=== PATIENT | female | born 1975 | race African-American/Black ===

== ENCOUNTER 2019-08-25 09:00 | Emergency (ER) | payer BC, SELFPAY ==
--- OUTSIDE RECORDS SUMMARY | 2019-08-25 09:03 | XMS REPORT | Summary of Care ---
:1975 Author Organization [facility] Address [address] [place] [address] Care Team Providers Name Role Phone Pcp, Patient Does Not Have A Primary Care Provider Reason for Referral Radiology Services (Routine) Status Reason Specialty Diagnoses / Referred By Referred To Procedures Contact Contact Closed Diagnostic Diagnoses Menorrhagia with regular cycle Vanaphan, Claudia, Radiology Procedures US PELVIS COMPLETE NON-OB PA-C [address] [place] [phone] Radiology Services (Routine) Status Reason Specialty Diagnoses / Referred By Referred To Procedures Contact Contact Closed Diagnostic Diagnoses Menorrhagia with regular cycle Vanaphan, Claudia, Radiology Procedures US PELVIS COMPLETE NON-OB PA-C [address] [address] Reason for Visit Radiology Services (Routine) Status Reason Specialty Diagnoses / Referred By Referred To Procedures Contact Contact Closed Diagnostic Diagnoses Menorrhagia with regular cycle Vanaphan, Claudia, Radiology Procedures US PELVIS COMPLETE NON-OB PA-C [address] [address] Encounter Details Date Type Department Care Team Description 04/13/2019 Hospital Encounter Critical access hospital Claudia Taylor, Manny Mary Ultrasound PA-C [address] [place] [phone] [address] [phone] [phone] Allergies No Known Allergiesdocumented as of this encounter (statuses as of 04/14/2019) Medications Medication Sig Dispensed Refills Start Date End Date Status MULTIVITAMIN ORAL Take by mouth. 0 Active LACTOBACILLUS Take by mouth. 0 Active ACIDOPHILUS (PROBIOTIC ORAL) omeprazole (PRILOSEC) 0 11/07/2015 Active 20 mg capsule ONETOUCH ULTRA TEST 1 11/24/2015 Active strip ONETOUCH ULTRAMINI Kit 0 11/24/2015 Active ONETOUCH DELICA LANCETS 1 11/25/2015 Active 30 gauge Misc metFORMIN (GLUCOPHAGE) 0 12/29/2015 Active 500 mg tablet traZODONE (DESYREL) 100 11 01/22/2016 Active mg tablet norgestimate-ethinyl Take 1 tablet by 1 Package 12 03/27/2017 Active estradiol 0.25-35 mouth mg-mcg per SEE-INSTRUCTIONS tabletIndications: . Premenstrual dysphoric disorder venlafaxine XR 150 mg Take 1 capsule 30 capsule 3 10/28/2017 Active 24 hr capsule by mouth daily with breakfast. TRAZODONE 100 mg tablet TAKE 1 TABLET BY 90 tablet 0 04/01/2018 Active MOUTH AT BEDTIME VENLAFAXINE XR 150 mg TAKE 1 CAPSULE 30 capsule 3 04/08/2018 Active 24 hr capsule BY MOUTH DAILY WITH BREAKFAST. metroNIDAZOLE 500 mg Take 1 tablet by 14 tablet 0 03/30/2019 Active tabletIndications: BV mouth every 12 (bacterial vaginosis) (twelve) hours. 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 Dysplasia of cervix, low grade (RENE 1) 08/23/2015 Premenstrual dysphoric disorder 08/19/2015 documented as of this encounter (statuses as of 04/14/2019) Immunizations Name Administration Dates Next Due Tdap 02/08/2016 documented as of this encounter Social History Tobacco Use Types Packs/Day Years Used Date Never Smoker Cigarettes, Pipe Smokeless Tobacco: Never Used Alcohol Use Drinks/Week oz/Week Comments No 0 Standard drinks or equivalent 0.0 Sex Assigned at Date Recorded Not on file Job Start Date Occupation Industry Not on file Not on file Not on file Travel History Travel Start Travel End No recent travel history available. documented as of this encounter Last Filed Vital Signs Not on filedocumented in this encounter Plan of Treatment Date Type Specialty Care Team Description 03/28/2020 Office Visit Obstetrics & Gynecology Claudia Taylor PA-C [address] [place] [phone] Health Maintenance Due Date Last Done Comments INFLUENZA VACCINE 05/17/2019 PAP SMEAR 03/26/2020 03/26/2017 MAMMOGRAM 03/30/2020 03/30/2019, 09/13/2017, 09/06/2016, Additional history exists DTaP,Tdap,and Td Vaccines 02/07/2026 02/08/2016 (2 - Td) PNEUMOCOCCAL 0-64 YEARS Aged Out No longer eligible COMBINED SERIES based on patient's age to complete this topic documented as of this encounter Procedures Procedure Name Priority Date/Time Associated Diagnosis Comments US PELVIS COMPLETE Routine 04/13/2019 4:30 PM Menorrhagia with Results for this NON-OB CDT regular cycle procedure are in the results section. documented in this encounter Results US PELVIS COMPLETE NON-OB (04/13/2019 4:30 PM CDT) Specimen Narrative Performed At HISTORY:Heavy menses with cramps. PACS/VR/DOSE TECHNIQUE: Both transabdominal and transvaginal pelvic ultrasound studies were completed by the technologist. FINDINGS: Uterus is of normal size and shape, measures approximately 8.2 x 4.2 x 4.7 cm in size with homogeneous echo texture of the myometrium except in the anterior wall of the upper body where there were slightly heterogeneous echotexture without a discrete fibroid.Endometrial echo complex is thin mm. No free fluid in the cul-de-sac. Right ovary is 3.4 x 2.5 x 1.9 cm ( 9.09 ml) and left ovary is not visualized with transabdominal or transvaginal studies. 2 cysts are present in the right ovary, each measuring 14 x 12 mm and 16 x 15 mm in size. CONCLUSIONS: 1. Normal size uterus with no focal myometrial lesions seen. 2. No endometrial hyperplasia. 3. 2 cysts in the right ovary described above. Left ovary is not visualized in this study. Note: Above report is self-edited and computer generated errors may be overlooked. Therefore, if you notice an error, I request you to bring it to my attention [facility]. SRI 2010 guidelines for simple ovarian cyst: Premenopausal: 3 cm or smaller -almost certainly benign with malignancy. Several less than 1%. 3 to 5 cm-no follow-up. 5 to 7 cm-annual follow-up. 7 cm or larger-MRI or surgery. Postmenopausal: 1 cm or smaller- ignore. 1cm - 7 cm-annual follow-up. 7 cm or larger-MR imaging or surgical evaluation. If hemorrhagic cyst, ignore if it is less than 3 cm, mention in the report with no follow-up if 3 to 5 cmfollow-up in 6-12 weeks if it is larger than 5 cm. Procedure Note Ut, Radiant Results Inft User - 04/13/2019 4:33 PM CDT HISTORY: Heavy menses with cramps. TECHNIQUE: Both transabdominal and transvaginal pelvic ultrasound studies were completed by the technologist. FINDINGS: Uterus is of normal size and shape, measures approximately 8.2 x 4.2 x 4.7 cm in size with homogeneous echo texture of the myometrium except in the anterior wall of the upper body where there were slightly heterogeneous echotexture without a discrete fibroid. Endometrial echo complex is thin mm. No free fluid in the cul-de-sac. Right ovary is 3.4 x 2.5 x 1.9 cm ( 9.09 ml) and left ovary is not visualized with transabdominal or transvaginal studies. 2 cysts are present in the right ovary, each measuring 14 x 12 mm and 16 x 15 mm in size. CONCLUSIONS: 1. Normal size uterus with no focal myometrial lesions seen. 2. No endometrial hyperplasia. 3. 2 cysts in the right ovary described above. Left ovary is not visualized in this study. Note: Above report is self-edited and computer generated errors may be overlooked. Therefore, if you notice an error, I request you to bring it to my attention [facility]. SRI 2010 guidelines for simple ovarian cyst: Premenopausal: 3 cm or smaller -almost certainly benign with malignancy. Several less than 1%. 3 to 5 cm-no follow-up. 5 to 7 cm-annual follow-up. 7 cm or larger-MRI or surgery. Postmenopausal: 1 cm or smaller- ignore. 1cm - 7 cm-annual follow-up. 7 cm or larger-MR imaging or surgical evaluation. If hemorrhagic cyst, ignore if it is less than 3 cm, mention in the report with no follow-up if 3 to 5 cm follow-up in 6-12 weeks if it is larger than 5 cm. Performing Organization Address City/State/Zipcode Phone Number PACS/VR/DOSE documented in this encounter Visit Diagnoses Diagnosis Menorrhagia with regular cycle Excessive or frequent menstruation documented in this encounter Insurance Payer Benefit Plan / Subscriber ID Effective Dates Phone Address Type Group [facility] - [facility] [id number] 2017-Present PPO/POS [facility] [employer] EMPLOYEE EMPLOYEE PLAN (Home) [place] [address] documented as of this encounter Advance Directives Name Relationship Healthcare Agent Relationship Communication River Selam Spouse Primary healthcare agent
--- OUTSIDE RECORDS SUMMARY | 2019-08-25 09:03 | XMS REPORT | Summary of Care ---
:1975 Author Organization [facility] - Health Address [address] [place] [address] Care Team Providers Name Role Phone Pcp, Patient Does Not Have A Primary Care Provider Encounter Details Date Type Department Care Team Description 04/13/2019 Orders Only [facility] Doctor Unassigned, No [address] [facility] [place] [address] [address] [place] [address] Allergies No Known Allergiesdocumented as of this encounter (statuses as of 04/13/2019) Medications Medication Sig Dispensed Refills Start Date [...] as of this encounter (statuses as of 04/13/2019) Active Problems Problem Noted Date Low grade squamous intraepithelial lesion (LGSIL) on Papanicolaou smear of cervix Decreased libido 08/23/2015 Depression 08/23/2015 Hypoactive sexual desire disorder 08/23/2015 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 [phone] Health Maintenance Due Date Last Done Comments INFLUENZA VACCINE 05/17/2019 PAP SMEAR 03/26/2020 03/26/2017 MAMMOGRAM 03/30/2020 03/30/2019, 09/13/2017, 09/06/2016, Additional history exists DTaP,Tdap,and Td Vaccines 02/07/2026 02/08/2016 (2 - Td) PNEUMOCOCCAL 0-64 YEARS Aged Out No longer eligible COMBINED SERIES based on patient's age to complete this topic documented as of this encounter Procedures Procedure Name Priority Date/Time Associated Diagnosis Comments ASSIGNMENT OF BENEFITS Routine 04/13/2019 3:34 PM CDT documented in this encounter Results Not on filedocumented in this encounter Insurance Payer Benefit Plan / Subscriber ID Effective Dates Phone Address Type Group [facility] [id number] 2017-Present PPO/POS [facility] EMPLOYEE EMPLOYEE PLAN documented as of this encounter Advance Directives Name Relationship Healthcare Agent Relationship Communication River Doss Spouse Primary healthcare agent
--- OUTSIDE RECORDS SUMMARY | 2019-08-25 09:03 | XMS REPORT | Summary of Care ---
:1975 Author Organization [facility] - Health Address [address] [place] [address] Care Team Providers Name Role Phone Pcp, Patient Does Not Have A Primary Care Provider Encounter Details Date Type Department Care Team Description 04/24/2019 Orders Only [facility] Doctor Unassigned, No 301 [facility] [place] [address] [address] [place] [address] Allergies No Known Allergiesdocumented as of this encounter (statuses as of 04/24/2019) Medications Medication Sig Dispensed Refills Start Date [...] as of this encounter (statuses as of 04/24/2019) Active Problems Problem Noted Date Low grade squamous intraepithelial lesion (LGSIL) on Papanicolaou smear of cervix Decreased libido 08/23/2015 Depression 08/23/2015 Hypoactive sexual desire disorder 08/23/2015 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 Dysplasia of cervix, low grade (RENE 1) 08/23/2015 Premenstrual dysphoric disorder 08/19/2015 documented as of this encounter (statuses as of 04/24/2019) Immunizations Name Administration Dates Next Due Tdap [...] Treatment Date Type Specialty Care Team Description 04/24/2019 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 Visit Clinical Medical Claudia Taylor PA-C [address] [phone] Laboratory 1, [facility] Lab 03/28/2020 Office Visit Obstetrics & Gynecology Claudia Taylor PA-C [address] [phone] Health Maintenance Due Date Last Done Comments [...] Associated Diagnosis Comments ASSIGNMENT OF BENEFITS Routine 04/24/2019 7:53 AM CDT documented in this encounter Results Not on filedocumented in this encounter Insurance Payer Benefit Plan / Subscriber ID Effective Dates Phone Address Type Group [facility] [id number] 2017-Present PPO/POS [facility] EMPLOYEE EMPLOYEE PLAN documented as of this encounter Advance Directives Name Relationship Healthcare Agent Relationship Communication River Doss Spouse Primary healthcare agent
--- OUTSIDE RECORDS SUMMARY | 2019-08-25 09:04 | XMS REPORT ---
:1975 Author Organization [facility] Address [address] [place] [address] Dr. Smith [address] [place] [address] Care Team Providers Name Role Phone Unavailable Unavailable Unavailable Problems This patient has no known problems. Allergies, Adverse Reactions, Alerts This patient has no known allergies or adverse reactions. Medications This patient has no known medications.
--- OUTSIDE RECORDS SUMMARY | 2019-08-25 09:04 | XMS REPORT | Summary of Care ---
:1975 Author Organization [facility] Address [address] [place] [address] Care Team Providers Name Role Phone Pcp, Patient Does Not Have A Primary Care Provider Reason for Referral MRI/CAT Scan (Routine) Status Reason Specialty Diagnoses / Referred By Referred To Procedures Contact Contact New Request Diagnostic Diagnoses Pain pelvic Vanaphan, Radiology Procedures CT PELVIS W WO CONTRAST GLADYS Taylor [address] [place] [address] Reason for Visit Reason Comments Results Encounter Details Date Type Department Care Team Description 05/12/2019 Telephone [facility] Women's Claudia Taylor PA-C Results Healthcare- [address], [address] [place] [address] [place] [phone] Allergies No Known Allergiesdocumented as of this encounter (statuses as of 05/13/2019) Medications Medication Sig Dispensed Refills Start Date [...] as of this encounter (statuses as of 05/13/2019) Active Problems Problem Noted Date Low grade squamous intraepithelial lesion (LGSIL) on Papanicolaou smear of cervix Decreased libido 08/23/2015 Depression 08/23/2015 Hypoactive sexual desire disorder 08/23/2015 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 Dysplasia of cervix, low grade (RENE 1) 08/23/2015 Premenstrual dysphoric disorder 08/19/2015 documented as of this encounter (statuses as of 05/13/2019) Immunizations Name Administration Dates Next Due Tdap [...] Visit Obstetrics & Gynecology Claudia Taylor PA-C [address] [place] [phone] Name Type Priority Associated Diagnoses Order Schedule CT PELVIS W WO CONTRAST IMAGING Routine Pain pelvic Expected: 05/12/2019, Expires: 05/12/2020 CREATININE LAB Routine Pain pelvic Expected: 05/12/2019, Expires: 05/11/2020 Health Maintenance Due Date Last Done Comments INFLUENZA VACCINE (#1) 2019 PAP SMEAR 03/26/2020 03/26/2017 MAMMOGRAM 03/30/2020 03/30/2019, 09/13/2017, 09/06/2016, Additional history exists DTaP,Tdap,and Td Vaccines 02/07/2026 02/08/2016 (2 - Td) PNEUMOCOCCAL 0-64 YEARS Aged Out No longer eligible COMBINED SERIES based on patient's age to complete this topic documented as of this encounter Results Not on filedocumented in this encounter Visit Diagnoses Diagnosis Pain pelvic - Primary Unspecified symptom associated with female genital organs documented in this encounter Insurance Payer Benefit Plan / Subscriber ID Effective Dates Phone Address Type Group [facility] [id number] 2017-Present PPO/POS [facility] EMPLOYEE EMPLOYEE PLAN documented as of this encounter Advance Directives Name Relationship Healthcare Agent Relationship Communication River Doss Spouse Primary healthcare agent
--- OUTSIDE RECORDS SUMMARY | 2019-08-25 09:04 | XMS REPORT | Summary of Care ---
:1975 Author Organization [facility] Address [address] [place] [address] Care Team Providers Name Role Phone Pcp, Patient Does Not Have A Primary Care Provider Reason for Visit Reason Comments LAB WORK Auth/Cert Status Reason Specialty Diagnoses / Referred By Referred To Procedures Contact Contact Clinical Medical Diagnoses Irregular menstrual cycle Irregular menstrual cycle [facility] Lab Laboratory Procedures TSH,PROGESTRONE,FOLICLE,ESTRADOL [address] [place] [address] [place] [address] Encounter Details Date Type Department Care Team Description 04/24/2019 [facility] Taylor PA-C [address] [place] [address] [address] [place] [phone] Well woman exam with routine gynecological exam; Phlebotomy 1, [facility] Lab Screening for STD (sexually transmitted disease); [facility] Irregular menstrual cycle; [address] [place] [address] Menorrhagia with regular cycle; [place] [phone] Allergies No Known Allergiesdocumented as [...] Obstetrics & Gynecology Claudia Taylor PA-C [address] [phone] Name Type Priority Associated Diagnoses Date/Time ADC, CLC OR LCC ONLY - LAB Routine Well woman exam with 04/24/2019 8:18 AM HIV TYPE 1 AND 2 routine gynecological exam CDT ANTIBODY SCREEN WITH P24 Screening for STD (sexually transmitted disease) ADC OR STEPHANIE ONLY - LAB Routine Well woman exam with 04/24/2019 8:18 AM RPR routine gynecological exam CDT Screening for STD (sexually transmitted disease) FOLLICLE STIMULATING LAB Routine Irregular menstrual cycle 04/24/2019 8:18 AM HORMONE Menorrhagia with regular CDT cycle Hot flashes PROGESTERONE, LEVEL LAB Routine Irregular menstrual cycle 04/24/2019 8:18 AM Menorrhagia with regular CDT cycle Hot flashes ESTRADIOL, LEVEL LAB Routine Irregular menstrual cycle 04/24/2019 8:18 AM Menorrhagia with regular CDT cycle Hot flashes THYROID STIMULATING LAB Routine Irregular menstrual cycle 04/24/2019 8:18 AM HORMONE Menorrhagia with regular CDT cycle Hot flashes Health Maintenance Due Date Last Done Comments INFLUENZA VACCINE 05/17/2019 PAP SMEAR 03/26/2020 03/26/2017 MAMMOGRAM 03/30/2020 03/30/2019, 09/13/2017, 09/06/2016, Additional history exists DTaP,Tdap,and Td Vaccines 02/07/2026 02/08/2016 (2 - Td) PNEUMOCOCCAL 0-64 YEARS Aged Out No longer eligible COMBINED SERIES based on patient's age to complete this topic documented as of this encounter Results Not on filedocumented in this encounter Visit Diagnoses Diagnosis Well woman exam with routine gynecological exam Routine gynecological examination Screening for STD (sexually transmitted disease) Screening examination for venereal disease Irregular menstrual cycle Menorrhagia with regular cycle Excessive or frequent menstruation Hot flashes Symptomatic menopausal or female climacteric states documented in this encounter Insurance Payer Benefit Plan / Subscriber ID Effective Dates Phone Address Type Group [facility] - [facility] [id number] 2017-Present PPO/POS [facility] EMPLOYEE EMPLOYEE PLAN documented as of this encounter Advance Directives Name Relationship Healthcare Agent Relationship Communication River Doss Spouse Primary healthcare agent
--- OUTSIDE RECORDS SUMMARY | 2019-08-25 09:04 | XMS REPORT | Summary of Care ---
:1975 Author Organization [facility] Address [address] [place] [address] Care Team Providers Name Role Phone Pcp, Patient Does Not Have A Primary Care Provider Reason for Visit Reason Comments Assessment Encounter Details Date Type Department Care Team Description 05/11/2019 Telephone [facility] Women's Claudia Taylor PA-C Assessment Healthcare- [address], [address] [place] [address] [place] [phone] Allergies No Known Allergiesdocumented as of this encounter (statuses as of 05/11/2019) Medications Medication Sig Dispensed Refills Start Date [...] as of this encounter (statuses as of 05/11/2019) Active Problems Problem Noted Date Low grade squamous intraepithelial lesion (LGSIL) on Papanicolaou smear of cervix Decreased libido 08/23/2015 Depression 08/23/2015 Hypoactive sexual desire disorder 08/23/2015 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 Dysplasia of cervix, low grade (RENE 1) 08/23/2015 Premenstrual dysphoric disorder 08/19/2015 documented as of this encounter (statuses as of 05/11/2019) Immunizations Name Administration Dates Next Due Tdap [...] Visit Obstetrics & Gynecology Claudia Taylor PA-C [address] [place] [phone] Health Maintenance Due Date Last Done [...] ID Effective Dates Phone Address Type Group [facility] [id number] 2017-Present PPO/POS [facility] EMPL[employer]EE EMPLOYEE PLAN documented as of this encounter Advance Directives Name Relationship Healthcare Agent Relationship Communication River Doss Spouse Primary healthcare agent
--- OUTSIDE RECORDS SUMMARY | 2019-08-25 09:04 | XMS REPORT | Clinical Summary ---
:1975 Author Organization [facility] - [facility] Address [address] [place] [id number] Care Team Providers Name Role Phone Pcp, Patient Does Not Have A Primary Care Provider Allergies No Known Allergies Medications Medication Sig Dispensed Refills Start Date [...] per SEE-INSTRUCTIONS tabletIndications: . Premenstrual dysphoric disorder metroNIDAZOLE 500 mg Take 1 tablet by 14 tablet 0 03/30/2019 Active tabletIndications: BV mouth every 12 (bacterial vaginosis) (twelve) hours. venlafaxine XR 75 mg 24 Take 1 capsule 30 capsule 1 05/21/2019 Active hr capsuleIndications: by mouth daily Recurrent major with breakfast. depressive disorder, in partial remission traZODone 100 mg Take 1 tablet by 60 tablet 0 05/21/2019 Active tabletIndications: mouth at Recurrent major bedtime. 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 Dysplasia of cervix, low grade (RENE 1) 08/23/2015 Premenstrual dysphoric disorder 08/19/2015 Encounters Date Type Specialty Care Team Description 05/12/2019 Telephone Obstetrics & Brandon, Results Gynecology GLADYS Taylor 05/11/2019 Telephone Obstetrics & Brandon, Assessment Gynecology GLADYS Taylor 04/24/2019 Medical Records Specialist Visit Clinical Medical Andrésaphmanjit, Well woman exam with routine gynecological exam; Laboratory GLADYS Taylor Screening for STD (sexually transmitted disease); 1, [facility] Lab Irregular menstrual cycle; Menorrhagia with regular cycle; Hot flashes 04/24/2019 Orders Only Doctor Unassigned, [place] 04/13/2019 Hospital Encounter Radiology Claudia Taylor PA-C 04/13/2019 Orders Only Doctor Unassigned, [place] 03/30/2019 Hospital Encounter Radiology Claudia Taylor PA-C 03/30/2019 Case Management Obstetrics & Brandon, New Medication Gynecology GLADYS Taylor 03/27/2019 Office Visit Obstetrics & Brandon, Well woman exam with routine gynecological exam (Primary Dx); Gynecology GLADYS Taylor Screening for STD (sexually transmitted disease); Vaginal discharge; Irregular menstrual cycle; Menorrhagia with regular cycle; Hot flashes; Screening breast examination 03/27/2019 Orders Only Doctor Unassigned, [place] from Last 3 Months Immunizations Name Administration Dates Next Due Tdap 02/08/2016 Family History Medical History Relation Name Comments High cholesterol Father Cancer Maternal Grandmother Leukemia Asthma Mother Arthritis NoFHx defects NoFHx Breast Cancer NoFHx Colon Cancer NoFHx Depression NoFHx Diabetes NoFHx Genetic NoFHx Heart NoFHx Hypertension NoFHx Mental retardation NoFHx Neurological NoFHx Osteoporosis NoFHx Other - see comments NoFHx Ovarian Cancer NoFHx Psychiatry NoFHx Uterine Cancer NoFHx Relation Name Status Comments Father Maternal Grandmother Mother Social History Tobacco Use Types Packs/Day Years Used Date Never Smoker Cigarettes, Pipe Smokeless Tobacco: Never Used Alcohol Use Drinks/Week oz/Week Comments No 0 Standard drinks or equivalent 0.0 Sex Assigned at Date Recorded Not on file Job Start Date Occupation Industry Not on file Not on file Not on file Travel History Travel Start Travel End No recent travel history available. Last Filed Vital Signs Vital Sign Reading Time Taken Comments Blood Pressure 118/80 05/21/2019 9:35 AM CDT Pulse 60 05/21/2019 9:35 AM CDT Temperature 36.8 C (98.2 F) 03/27/2019 9:30 AM CDT Respiratory Rate 18 05/21/2019 9:35 AM CDT Oxygen Saturation 100% 08/30/2015 4:54 PM [employer]IVE Inhaled Oxygen Concentration - - Weight 78.8 kg (173 lb 12.8 oz) 05/21/2019 9:35 AM CDT Height 172.7 cm (5' 8") 05/21/2019 9:35 AM CDT Body Mass Index 26.43 05/21/2019 9:35 AM CDT Plan of Treatment Date Type Specialty Care Team Description 03/28/2020 Office Visit Obstetrics & Gynecology Claudia Taylor PA-C [facility] [address] [id number] Health Maintenance Due Date Last Done Comments INFLUENZA VACCINE (#1) 2019 PAP SMEAR 03/26/2020 03/26/2017 MAMMOGRAM 03/30/2020 03/30/2019, 09/13/2017, 09/06/2016, Additional history exists DTaP,Tdap,and Td Vaccines 02/07/2026 02/08/2016 (2 - Td) PNEUMOCOCCAL 0-64 YEARS Aged Out No longer eligible COMBINED SERIES based on patient's age to complete this topic Procedures Procedure Name Priority Date/Time Associated Diagnosis Comments THYROID STIMULATING Routine 04/24/2019 8:18 Irregular menstrual Results for this HORMONE AM CDT cycle procedure are in Menorrhagia with the results regular cycle section. Hot flashes ESTRADIOL, LEVEL Routine 04/24/2019 8:18 Irregular menstrual Results for this AM CDT cycle procedure are in Menorrhagia with the results regular cycle section. Hot flashes PROGESTERONE, LEVEL Routine 04/24/2019 8:18 Irregular menstrual Results for this AM CDT cycle procedure are in Menorrhagia with the results regular cycle section. Hot flashes FOLLICLE STIMULATING Routine 04/24/2019 8:18 Irregular menstrual Results for this HORMONE AM CDT cycle procedure are in Menorrhagia with the results regular cycle section. Hot flashes ADC OR STEPHANIE ONLY - Routine 04/24/2019 8:18 Well woman exam with Results for this RPR AM CDT routine procedure are in gynecological exam the results Screening for STD section. (sexually transmitted disease) ADC, CLC OR LCC ONLY - Routine 04/24/2019 8:18 Well woman exam with Results for this HIV TYPE 1 AND 2 AM CDT routine procedure are in ANTIBODY SCREEN WITH gynecological exam the results P24 Screening for STD section. (sexually transmitted disease) HEPATITIS B SURFACE Routine 04/24/2019 8:18 Well woman exam with Results for this ANTIGEN AM CDT routine procedure are in gynecological exam the results Screening for STD section. (sexually transmitted disease) CONSENT/REFUSAL FOR Routine 04/24/2019 7:54 DIAGNOSIS AND TREATMENT AM CDT ASSIGNMENT OF BENEFITS Routine 04/24/2019 7:53 AM CDT US PELVIS COMPLETE Routine 04/13/2019 4:30 Menorrhagia with Results for this NON-OB PM CDT regular cycle procedure are in the results section. NOTICE OF PRIVACY Routine 04/13/2019 3:35 PRACTICES PM CDT VACCINATIONS - Routine 04/13/2019 3:34 CONSENTS, ELIGIBILITY, PM CDT HISTORY CONSENT/REFUSAL FOR Routine 04/13/2019 3:34 DIAGNOSIS AND TREATMENT PM CDT ASSIGNMENT OF BENEFITS Routine 04/13/2019 3:34 PM CDT BI SCREENING MAMMOGRAM Routine 03/30/2019 8:35 Screening breast Results for this BILATERAL AM CDT examination procedure are in the results section. CONSENT/REFUSAL FOR Routine 03/30/2019 8:04 DIAGNOSIS AND TREATMENT AM CDT ASSIGNMENT OF BENEFITS Routine 03/30/2019 8:04 AM CDT GC & CHLAMYDIA Routine 03/27/2019 9:49 Well woman exam with Results for this AMPLIFIED ASSAY AM CDT routine procedure are in gynecological exam the results Screening for STD section. (sexually transmitted disease) GALV ONLY - VAGINAL Routine 03/27/2019 9:48 Well woman exam with Results for this PATHOGENS BY DNA PROBE AM CDT routine procedure are in gynecological exam the results Vaginal discharge section. [facility] PATIENT FINANCIAL Routine 03/27/2019 8:46 POLICY AM CDT NO SHOW OR MISSED Routine 03/27/2019 8:46 APPOINTMENT POLICY AM CDT ACKNOWLEDGEMENT NOTICE OF PRIVACY Routine 03/27/2019 8:46 PRACTICES AM CDT CONSENT/REFUSAL FOR Routine 03/27/2019 8:46 DIAGNOSIS AND TREATMENT AM CDT ASSIGNMENT OF BENEFITS Routine 03/27/2019 8:45 AM CDT from Last 3 Months Results ADC, CLC OR LCC ONLY - HIV TYPE 1 AND 2 ANTIBODY SCREEN WITH P24 (04/24/2019 8: 18 AM CDT) HIV 1/2 AG/AB NON-REACTIVE Nonreactive [facility] Specimen Blood Performing Organization Address City/[facility]/Zipcode Phone Number [facility] CLIA: [id number], [address] [place] [address] ADC OR STEPHANIE ONLY - RPR (04/24/2019 8:18 AM CDT) RPR (Qualitative) NON-REACTIVE Nonreactive [facility] Specimen Blood Performing Organization Address City/[facility] Phone Number [facility] CLIA: [id number], [address] [place] [address] HEPATITIS B SURFACE ANTIGEN (04/24/2019 8:18 AM CDT) HBsAg HEPATITIS B Negative [facility] SURFACE ANTIGEN SERVICES NEGATIVE HBsAg 0.05 [facility] Semi-Quantitative SERVICES Specimen Blood Performing Organization Address City/[facility]/Zipcode Phone Number [facility] CLIA: [id number], [address] [place] [address] [facility] ESTRADIOL, LEVEL (04/24/2019 8:18 AM CDT) E2 29 pg/mL [facility] SERVICES Specimen Blood Narrative Performed At Estradiol Reference Ranges: [facility] Female: Follicular 27-122 pg/mL Eus--710 pg/mL Luteal 49-291 pg/mL Post Menopausal 20-40 pg/mL Male 20-47 pg/mL Performing Organization Address City/State/Zipcode Phone Number [facility] CLIA: [id number], [address] [place] [address] [facility] PROGESTERONE, LEVEL (04/24/2019 8:18 AM CDT) PROGEST 0.54 ng/mL [facility] SERVICES Specimen Blood Narrative Performed At Normal ranges for Progesterone [facility] Proliferative: 0.3 1.5 ng/mL Luteal:5.1 18.5 ng/mL Performing Organization Address City/State/Zipcode Phone Number [facility] CLIA: [id number], [address] [place], [place] [address] [phone] [facility] FOLLICLE STIMULATING HORMONE (04/24/2019 8:18 AM CDT) FSH 37.46 mIU/mL [facility] SERVICES Specimen Blood Narrative Performed At FSH Reference Ranges [facility] Follicular Phase: 3.8-8.8 mIU/mL Mid-cycle Peak: 4.5-22.85 mIU/mL Luteal Phase: 1.7-5.1 mIU/mL Post-menopause female:16.7-113.6 mIU/mL Adult male: 1.2-19 mIU/mL Performing Organization Address City/State/Zipcode Phone Number [facility] CLIA: [id number], [address] [place] [address] [facility] THYROID STIMULATING HORMONE (04/24/2019 8:18 AM CDT) TSH 1.97Comment: Biotin 0.45 - 4.70 [facility] has been reported mIU/L HOSPITAL LABORATORY to cause a negative bias, interpret results relative to patient's use of biotin. Specimen Blood Performing Organization Address [facility]/Zipcode Phone Number [facility] CLIA: [id number], [address] [place] [address] CONSENT/REFUSAL FOR DIAGNOSIS AND TREATMENT (04/24/2019 7:54 AM CDT)Only the most recent of4 resultswithin the time period is included. Specimen Performing Organization Address City/[facility]/Zipcode Phone Number [facility] ASSIGNMENT OF BENEFITS (04/24/2019 7:53 AM CDT)Only the most recent of4 resultswithin the time period is included. Specimen Performing Organization Address City/[facility]/Zipcode Phone Number HIM US PELVIS COMPLETE NON-OB (04/13/2019 4:30 PM [...] is larger than 5 cm. Procedure Note [facility], Radiant Results Inft User - 04/13/2019 4:33 [...] larger than 5 cm. Performing Organization Address [facility] Phone Number PACS/VR/DOSE NOTICE OF PRIVACY PRACTICES (04/13/2019 3:35 PM CDT)Only the most recent of2 resultswithin the time period is included. Specimen Performing Organization Address [facility] Phone Number [facility] VACCINATIONS - CONSENTS, ELIGIBILITY, HISTORY (04/13/2019 3:34 PM CDT) Specimen Performing Organization Address [facility] Phone Number [facility] BI SCREENING MAMMOGRAM BILATERAL (03/30/2019 8:35 AM CDT) Specimen Narrative Performed At Examination: PACS BI SCREENING MAMMOGRAM BILATERAL History: Patient is 44 year old and is seen for:Routine mammogram screening. No relevant family history has been documented for this patient. Hormone history includes other. No relevant surgical history has been documented for this patient. No relevant medical history has been documented for this patient. Computer-aided detection (CAD) utilized. Comparisons: 09/13/2017 DIGITAL MAMMOGRAM, SCREENING (No Change), 09/06/2016 DIGITAL MAMMOGRAM, SCREENING (No Change), and 08/29/2015 DIGITAL MAMMOGRAM, SCREENING Findings: The breasts are almost entirely fatty. Left There are round and rim calcifications seen in the left breast. Compared to the previous study, there are no significant changes. Right There are 2 similar intramammary lymph nodes seen in the upper outer quadrant of the right breast in the posterior depth. Compared to the previous study, there are no significant changes. Bilateral There are post-surgical findings from a previous breast reduction seen in both breasts. There has been no interval development of a suspicious mass, microcalcification, or architectural distortion. Impression: No signs of malignancy. Recommendation: Annual mammographic follow-up - Bilateral Annual mammographic follow-up - Right Annual mammographic follow-up - Left BI-RADS Category: Both 2 - Benign Performing Organization Address City/State/[facility] Cent[facility]ode Phone Number PACS GC & CHLAMYDIA AMPLIFIED ASSAY (03/27/2019 9:49 AM CDT) C. trachomatis Nucleic NEGATIVE Negative [facility] Acid SERVICES N. gonorrhoeae Nucleic NEGATIVE Negative [facility] Acid SERVICES Specimen Urine - URINE, CLEAN CATCH Performing Organization Address [facility] Centercode Phone Number [facility] CLIA: [id number], [address] [place] [address] [phone] [facility] ONLY - VAGINAL PATHOGENS BY DNA PROBE (03/27/2019 9:48 AM CDT) Trichomonas Negative Negative [facility] vaginalis SERVICES Gardnerella Positive Negative [facility] vaginalis (A)Comment: The SERVICES presence of Gardnerella vaginalis although suggestive, is not diagnostic of Bacterial Vaginosis. Rochelle species Negative Negative [facility] SERVICES Specimen Fluid - VAGINA Performing Organization Address [facility] Cent[facility]ode Phone Number [facility] CLIA: [id number], [address] [place] [address] [phone] [facility] PATIENT FINANCIAL POLICY (03/27/2019 8:46 AM CDT) Specimen Performing Organization Address City/State/Zipcode Phone Number HIM NO SHOW OR MISSED APPOINTMENT POLICY ACKNOWLEDGEMENT (03/27/2019 8:46 AM CDT) Specimen Performing Organization Address City/[facility] Cent[facility] Phone Number HIM from Last 3 Months Insurance Payer Benefit Plan / Subscriber ID Effective Dates Phone Address Type Group [facility] [id number] 2017-Present PPO/POS [facility] EM[employer]OYEE EMPLOYEE PLAN Advance Directives Name Relationship Healthcare Agent Relationship Communication River Doss Spouse Primary healthcare agent
--- OUTSIDE RECORDS SUMMARY | 2019-08-25 09:05 | XMS REPORT | Clinical Summary ---
:1975 Author Organization [facility] - [facility] Address [address] [place] [id number] Care Team Providers Name Role Phone Pcp, [...] & Brandon, Assessment Gynecology GLADYS Taylor 04/24/2019 Steel Plate Printer Visit Clinical Medical Andrésaphmanjit, Well woman exam with routine gynecological exam; Laboratory GLADYS Taylor Screening for STD (sexually transmitted disease); 1, Adc Lab Irregular menstrual cycle; Menorrhagia with regular cycle; Hot flashes 04/24/2019 Orders Only Doctor Unassigned, [place] 04/13/2019 Hospital Encounter Radiology Claudia Taylor PA-C 04/13/2019 Orders Only Doctor Unassigned, [place] 03/30/2019 Hospital Encounter Radiology Claudia Taylor PA-C 03/30/2019 Case Management Obstetrics & Brandon, New Medication Gynecology GLADYS Taylor 03/27/2019 Office Visit Obstetrics & Brandon, Well woman exam with routine gynecological exam (Primary Dx); Gynecology GLADYS Taylor Screening for STD (sexually transmitted disease); Vaginal discharge; Irregular menstrual cycle; Menorrhagia with regular cycle; Hot flashes; Screening breast examination 03/27/2019 Orders Only Doctor Unassigned, [place] from Last 3 Months Immunizations Name Administration [...] CDT Oxygen Saturation 100% 08/30/2015 4:54 PM RN RESIDENTIAL Inhaled Oxygen Concentration - - Weight 78.8 kg (173 lb 12.8 oz) 05/21/2019 9:35 AM CDT Height 172.7 cm (5' 8") 05/21/2019 9:35 AM CDT Body Mass Index 26.43 05/21/2019 9:35 AM CDT Plan of Treatment Date Type Specialty Care Team Description 03/28/2020 Office Visit Obstetrics & Gynecology Claudia Taylor PA-C [facility] [address] [id number] Health Maintenance Due Date Last [...] gynecological exam the results Vaginal discharge section. [facility] PATIENT FINANCIAL Routine 03/27/2019 8:46 POLICY AM [...] AM CDT) HIV 1/2 AG/AB NON-REACTIVE Nonreactive [facility] LABORATORY Specimen Blood Performing Organization Address City/[facility]/Zipcode Phone Number [facility] CLIA: [id number], [address] [place] [address] ADC OR STEPHANIE ONLY - RPR (04/24/2019 8:18 AM CDT) RPR (Qualitative) NON-REACTIVE Nonreactive [facility] LABORATORY Specimen Blood Performing Organization Address City/[facility] Phone Number [facility] CLIA: [id number], [address] [place] [address] HEPATITIS B SURFACE ANTIGEN (04/24/2019 8:18 AM CDT) HBsAg HEPATITIS B Negative [facility] LABORATORY SURFACE ANTIGEN SERVICES NEGATIVE HBsAg 0.05 [facility] LABORATORY Semi-Quantitative SERVICES Specimen Blood Performing Organization Address City/[facility]/Zipcode Phone Number [facility] LABORATORY SERVICES CLIA: [id number], [address] [place] [address] [phone] [facility] ESTRADIOL, LEVEL (04/24/2019 8:18 AM CDT) E2 29 pg/mL [facility] LABORATORY SERVICES Specimen Blood Narrative Performed At Estradiol Reference Ranges: [facility] LABORATORY SERVICES Female: Follicular 27-122 pg/mL [id number] pg/mL Luteal 49-291 pg/mL Post Menopausal 20-40 pg/mL Male 20-47 pg/mL Performing Organization Address City/State/Zipcode Phone Number [facility] LABORATORY SERVICES CLIA: [id number], [address] [place] [address] [phone] [facility] PROGESTERONE, LEVEL (04/24/2019 8:18 AM CDT) PROGEST 0.54 ng/mL [facility] LABORATORY SERVICES Specimen Blood Narrative Performed At Normal ranges for Progesterone [facility] LABORATORY SERVICES Proliferative: 0.3 1.5 ng/mL Luteal:5.1 18.5 ng/mL Performing Organization Address City/State/Zipcode Phone Number [facility] LABORATORY SERVICES CLIA: [id number], [address] [place], [place] [address] [phone] [facility] FOLLICLE STIMULATING HORMONE (04/24/2019 8:18 AM CDT) FSH 37.46 mIU/mL [facility] LABORATORY SERVICES Specimen Blood Narrative Performed At FSH Reference Ranges [facility] LABORATORY SERVICES Follicular Phase: 3.8-8.8 mIU/mL Mid-cycle Peak: 4.5-22.85 mIU/mL Luteal Phase: 1.7-5.1 mIU/mL Post-menopause female:16.7-113.6 mIU/mL Adult male: 1.2-19 mIU/mL Performing Organization Address City/State/Zipcode Phone Number [facility] LABORATORY SERVICES CLIA: [id number], [address] [place] [address] [facility] THYROID STIMULATING HORMONE (04/24/2019 8:18 AM CDT) TSH 1.97Comment: Biotin 0.45 - 4.70 [facility] has been reported mIU/L HOSPITAL LABORATORY to cause a negative bias, interpret results relative to patient's use of biotin. Specimen Blood Performing Organization Address [facility]/Zipcode Phone Number [facility] CLIA: [id number], [address] [place] [address] CONSENT/REFUSAL FOR DIAGNOSIS AND TREATMENT (04/24/2019 7:54 AM CDT)Only the most recent of4 resultswithin the time period is included. Specimen Performing Organization Address City/[facility]/Zipcode Phone Number [facility] ASSIGNMENT OF BENEFITS (04/24/2019 7:53 AM CDT)Only the most recent of4 resultswithin the time period is included. Specimen Performing Organization Address City/[facility]/Zipcode Phone Number HIM US PELVIS COMPLETE NON-OB [...] is larger than 5 cm. Procedure Note [facility], Radiant Results Inft User - 04/13/2019 [...] larger than 5 cm. Performing Organization Address [facility] Phone Number PACS/VR/DOSE NOTICE OF PRIVACY PRACTICES (04/13/2019 3:35 PM CDT)Only the most recent of2 resultswithin the time period is included. Specimen Performing Organization Address [facility] Phone Number [facility] VACCINATIONS - CONSENTS, ELIGIBILITY, HISTORY (04/13/2019 3:34 PM CDT) Specimen Performing Organization Address [facility] Phone Number [facility] BI SCREENING MAMMOGRAM BILATERAL (03/30/2019 8:35 AM [...] Both 2 - Benign Performing Organization Address City/State/[facility] Phone Number PACS GC & CHLAMYDIA AMPLIFIED ASSAY (03/27/2019 9:49 AM CDT) C. trachomatis Nucleic NEGATIVE Negative [facility] LABORATORY Acid SERVICES N. gonorrhoeae Nucleic NEGATIVE Negative [facility] LABORATORY Acid SERVICES Specimen Urine - URINE, CLEAN CATCH Performing Organization Address [facility] Phone Number [facility] LABORATORY SERVICES CLIA: [id number], [address] [place] [address] [phone] [facility] ONLY - VAGINAL PATHOGENS BY DNA PROBE (03/27/2019 9:48 AM CDT) Trichomonas Negative Negative [facility] LABORATORY vaginalis SERVICES Gardnerella Positive Negative [facility] LABORATORY vaginalis (A)Comment: The SERVICES presence of Gardnerella vaginalis although suggestive, is not diagnostic of Bacterial Vaginosis. Rochelle species Negative Negative [facility] LABORATORY SERVICES Specimen Fluid - VAGINA Performing Organization Address [facility] Phone Number [facility] LABORATORY SERVICES CLIA: [id number], [address] [place] [phone] [facility] PATIENT FINANCIAL POLICY (03/27/2019 8:46 AM CDT) Specimen Performing Organization Address City/State/Zipcode Phone Number HIM NO SHOW OR MISSED APPOINTMENT POLICY ACKNOWLEDGEMENT (03/27/2019 8:46 AM CDT) Specimen Performing Organization Address City/[facility] Phone Number [facility] from Last 3 Months Insurance Payer Benefit Plan / Subscriber ID Effective Dates Phone Address Type Group [facility] [id number] 2017-Present PPO/POS [facility] EMPLOYEE EMPLOYEE PLAN Advance Directives Name Relationship Healthcare Agent Relationship Communication River Doss Spouse Primary healthcare agent
[2019-08-25 10:49] LABS: Absolute Lymphocytes (CBC) 0.8 K/uL (0.7-4.9); Basophils % 0.4 % (0-1.3); Hematocrit 38.7 % (36.0-45.0); Lymphocytes % 14.4 % (15.3-44.8); MPV 8.9 fL (7.6-11.3); RBC Red Blood Cell Count 4.61 M/uL (3.86-4.86)
[2019-08-25 10:53] LABS: Urine Blood TRACE (NEG); Urine Glucose NEGATIVE (NEG); Urine Protein NEGATIVE (NEG); Urine Specific Gravity >1.030 (1.005-1.030); Urine pH 5.5 (5.0-7.0)
--- NOTE | 2019-08-25 11:18 | RAD REPORT ---
EXAM DESCRIPTION: CT - Abdomen Pelvis W Contrast - 08/25/2019 10:58 am CLINICAL HISTORY: Abdominal pain/diarrhea COMPARISON: none. TECHNIQUE: Computed axial tomography of the abdomen pelvis was obtained. 100 cc Isovue-300 was admin istered intravenously. Oral contrast was not requested which limits evaluation of bowel. All CT scans are performed using dose optimization technique as appropriate and may include automated exposure control or mA/KV adjustment according to patient size. FINDINGS: Cholecystectomy. Splenic granulomata. Calcified lung granulomas. The liver, pancreas, adrenal and kidneys appear unremarkable. There is no evidence of diverticulitis. A normal appendix The wall of the terminal ileum appears mildly thickened IMPRESSION: Mildly thickening of the wall of the terminal ileum may indicate inflammation
[2019-08-25 11:29] LABS: ALT/SGPT 21 U/L (12-78); AST/SGOT 14 U/L (15-37); Albumin 3.5 g/dL (3.4-5.0); Alkaline Phosphatase 109 U/L (45-117); BUN Blood Urea Nitrogen 13 mg/dL (7-18); Bicarbonate 24 mmol/L (21-32); Bilirubin Direct < 0.1 mg/dL (0-0.2); Bilirubin Total 0.2 mg/dL (0.2-1.0); Glucose Level 93 mg/dL (74-106); Lipase 484 U/L (73-393); Potassium 4.4 mmol/L (3.5-5.1); Sodium Level 139 mmol/L (136-145)
--- NOTE | 2019-08-25 12:46 | ER ---
Nurse's Notes [facility] Name: Genna Doss Age: 44 yrs Sex: Female : 1975 Arrival Date: 08/25/2019 Time: 09:02 Bed 16 Private MD: Diagnosis: Dehydration;Ileitis Presentation: 08/25 09:10 Presenting complaint: Productive cough and SOB x 2 weeks, N/D x 2 days. Denies fever. hb Transition of care: patient was not received from another setting of care. Onset of symptoms was August 25, 2019. Risk Assessment: Do you want to hurt yourself or someone else? Patient reports no desire to harm self or others. Initial Sepsis Screen: Does the patient meet any 2 criteria? No. Patient's initial sepsis screen is negative. Does the patient have a suspected source of infection? No. Patient's initial sepsis screen is negative. Care prior to arrival: None. 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 - Social history:: Smoking status: Patient/guardian denies using tobacco. - Ebola Screening: : No symptoms or risks identified at this time. - Family history:: not pertinent. - Hospitalizations: : No recent hospitalization is reported. Screenin:15 Abuse screen: Denies threats or abuse. Denies injuries from another. Nutritional hb screening: No deficits noted. Tuberculosis screening: No symptoms or risk factors identified. Fall Risk None identified. Assessment: 09:07 General: Appears in no apparent distress. comfortable, Behavior is calm, cooperative. rb1 Pain: Complains of pain in abdomen Pain currently is 7 out of 10 on a pain scale. Pain began Saturday. Neuro: Level of Consciousness is awake, alert, obeys commands, Oriented to person, place, time, situation. Cardiovascular: Capillary refill < 3 seconds is brisk in bilateral fingers. Respiratory: Airway is patent Respiratory effort is even, unlabored, Respiratory pattern is regular, symmetrical. GI: Abdomen is non-distended, Bowel sounds present X 4 quads. Abd is soft X 4 quads Reports diarrhea, nausea. : No signs and/or symptoms were reported regarding the genitourinary system. Derm: Skin is dry, Skin is normal, Skin temperature is warm. 10:00 Reassessment: Patient appears in no apparent distress at this time. Patient and/or rb1 family updated on plan of care and expected duration. Pain level reassessed. Patient is alert, oriented x 3, equal unlabored respirations, skin warm/dry/pink. 11:00 Reassessment: Patient appears in no apparent distress at this time. No changes from rb1 previously documented assessment. 12:00 Reassessment: Patient appears in no apparent distress at this time. Patient and/or rb1 family updated on plan of care and expected duration. Pain level reassessed. Patient is alert, oriented x 3, equal unlabored respirations, skin warm/dry/pink. 13:00 Reassessment: Patient appears in no apparent distress at this time. No changes from rb1 previously documented assessment. Pt. is watching TV. Vital Signs: 09:13 BP 134 / 86; Pulse 65; Resp 16; Temp 98.2(O); Pulse Ox 100% on R/A; Weight 83.91 kg; hb Height 5 ft. 8 in. (172.72 cm); Pain 3/10; 10:19 BP 132 / 76; Pulse 58; Resp 15; Temp 97.8(O); Pulse Ox 98% on R/A; mh5 12:08 BP 133 / 81; Pulse 61; Resp 15; Temp 98.5(O); Pulse Ox 100% on R/A; mh5 12:59 BP 130 / 94; Pulse 56; Resp 17; Pulse Ox 100% on R/A; rb1 09:13 Body Mass Index 28.13 (83.91 kg, 172.72 cm) ED Course: 09:02 Patient arrived in ED. as 09:03 Vijay Gusman MD is Attending Physician. rn 09:11 Triage completed. hb 09:13 Arm band placed on. hb 09:43 Ada Ruth, RN is Primary Nurse. rb1 10:02 Radiology exam delayed due to lab results not completed at this time. (BUN/Creatinine). 10:17 Patient has correct armband on for positive identification. Placed in gown. Bed in low mh5 position. Call light in reach. Side rails up X 1. Pillow given. Pulse ox on. NIBP on. 10:17 Initial lab(s) drawn, by me, sent to lab. Missed attempt(s): 22 gauge in left mh5 antecubital area. 10:18 Urine --Ancillary (enter results) Sent. mh5 10:18 Urine Dipstick--Ancillary (enter results) Sent. 5 10:18 Stool Culture Sent. 5 10:18 CDIFF Sent. 5 10:34 Inserted saline lock: 22 gauge in right antecubital area, using aseptic technique. tw2 Blood collected. 10:50 CT completed. Patient tolerated procedure well. Patient moved to CT via wheelchair. Patient moved back from CT. 10:59 CT Abd/Pelvis - IV Contrast Only In Process Unspecified. EDMS 13:27 No provider procedures requiring assistance completed. IV discontinued, intact, rb1 bleeding controlled, No redness/swelling at site. Pressure dressing applied. Administered Medications: No medications were administered Outcome: 12:46 Discharge ordered by . rn 13:27 Patient left the ED. rb1 13:27 Discharged to home ambulatory. rb1 13:27 Condition: stable 13:27 Discharge instructions given to patient, Instructed on discharge instructions, follow up and referral plans. medication usage, Demonstrated understanding of instructions, follow-up care, medications, Prescriptions given X 2. Signatures: Dispatcher [employer] EDMS Shae Bonilla Roman, MD MD rn Warren, Shannon Ada Ruth RN RN rb1 Char Singleton RN RN hb Wise, Tara, RN RN 2 Mely Bonilla [facility] Corrections: (The following items were deleted from the chart) 10:58 10:19 BP 132 / 76; Pulse 58bpm; Resp 15bpm; Pulse Ox 98% RA; 5 5
--- NOTE | 2019-08-25 12:47 | EDPHYS ---
Physician Documentation [facility] Name: Genna Doss Age: 44 yrs Sex: Female : 1975 Arrival Date: 08/25/2019 Time: 09:02 Bed 16 Private MD: ED Physician Vijay Gusman HPI: 08/25 09:27 This 44 yrs old Black Female presents to ER via Ambulatory with complaints of Abdominal rn Cramping, Diarrhea. 09:28 The patient presents with abdominal pain in the epigastric area. rn 09:29 Onset: The symptoms/episode began/occurred 2 day(s) ago. The symptoms do not radiate. rn Associated signs and symptoms: Pertinent positives: diarrhea, nausea, Pertinent negatives: blood in stools, fever, vaginal discharge, vomiting blood. The symptoms are described as crampy. Modifying factors: The symptoms are alleviated by nothing, the symptoms are aggravated by breathing deeply. Severity of pain: At its worst the pain was moderate in the emergency department the pain is unchanged. The patient has not experienced similar symptoms in the past. 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 Feels generalized weakness. . 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 - Social history:: Smoking status: Patient/guardian denies using tobacco. - Ebola Screening: : No symptoms or risks identified at this time. - Family history:: not pertinent. - Hospitalizations: : No recent hospitalization is reported. ROS: 09:29 Constitutional: Negative for fever, chills, and weight loss, Eyes: Negative for injury, rn pain, redness, and discharge, Neck: Negative for injury, pain, and swelling, Cardiovascular: Negative for chest pain, palpitations, and edema, Respiratory: Negative for shortness of breath, cough, wheezing, and pleuritic chest pain, Abdomen/GI: + abd cramping, + nausea/diarrhea MS/Extremity: Negative for injury and deformity, Skin: Negative for injury, rash, and discoloration, Neuro: Negative for headache, numbness, tingling, and seizure. Exam: 09:29 Constitutional: This is a well developed, well nourished patient who is awake, alert, rn and in no acute distress. Ambulatory without assistance. Head/Face: Normocephalic, atraumatic. ENT: dry MM Cardiovascular: Regular rate and rhythm. No pulse deficits. Respiratory: No increased work of breathing, no retractions or nasal flaring. Abdomen/GI: soft, mild epigastric tenderness, no rebound MS/ Extremity: Pulses equal, no cyanosis. Neurovascular intact. Full, normal range of motion. Equal circumference. Neuro: Awake and alert, GCS 15, oriented to person, place, time, and situation. Cranial nerves II-XII grossly intact. Motor strength 5/5 in all extremities. Sensory grossly intact. Cerebellar exam normal. Normal gait. Vital Signs: 09:13 BP 134 / 86; Pulse 65; Resp 16; Temp 98.2(O); Pulse Ox 100% on R/A; Weight 83.91 kg; hb Height 5 ft. 8 in. (172.72 cm); Pain 3/10; 10:19 BP 132 / 76; Pulse 58; Resp 15; Temp 97.8(O); Pulse Ox 98% on R/A; mh5 12:08 BP 133 / 81; Pulse 61; Resp 15; Temp 98.5(O); Pulse Ox 100% on R/A; mh5 12:59 BP 130 / 94; Pulse 56; Resp 17; Pulse Ox 100% on R/A; rb1 09:13 Body Mass Index 28.13 (83.91 kg, 172.72 cm) hb MDM: 09:03 Patient medically screened. rn 12:44 Differential diagnosis: gastritis, non-specific abd pain, pancreatitis, diverticulitis, rn colitis, enteritis. Data reviewed: vital signs, nurses notes, lab test result(s), radiologic studies, CT scan, and as a result, I will discharge patient. Counseling: I had a detailed discussion with the patient and/or guardian regarding: the historical points, exam findings, and any diagnostic results supporting the discharge/admit diagnosis, lab results, radiology results, the need for outpatient follow up, to return to the emergency department if symptoms worsen or persist or if there are any questions or concerns that arise at home. Response to treatment: the patient's symptoms have mildly improved after treatment, and as a result, I will discharge patient. Special discussion: I discussed with the patient/guardian in detail that at this point there is no indication for admission to the hospital. It is understood, however, that if the symptoms persist or worsen the patient needs to return immediately for re-evaluation. ED course: Pt improved, mild ileitis on CT, cdiff and stool culture sent, will dc home with bactrim and pcp f/u, return precautions given and understood. Will notify if stool culture/cdiff show anything positive.. 08/25 09:15 Order name: Basic Metabolic Panel; Complete Time: 12:30 rn 08/25 09:15 Order name: CBC with Diff; Complete Time: 11:27 rn 08/25 09:15 Order name: Creatinine for Radiology; Complete Time: 10:27 rn 08/25 09:15 Order name: Hepatic Function; Complete Time: 12:30 rn 08/25 09:15 Order name: Lipase; Complete Time: 12:30 rn 08/25 09:15 Order name: CDIFF rn 08/25 09:15 Order name: IV Saline Lock; Complete Time: 12:59 rn 08/25 09:15 Order name: Labs collected and sent; Complete Time: 12:59 rn 08/25 09:15 Order name: Stool Culture 08/25 09:15 Order name: CT Abd/Pelvis - IV Contrast Only; Complete Time: 12:30 rn 08/25 09:57 Order name: Labs - recollect needed; Complete Time: 12:44 bd 08/25 10:17 Order name: Urine Dipstick--Ancillary (enter results); Complete Time: 11:27 bd 08/25 10:17 Order name: Urine --Ancillary (enter results); Complete Time: 11:27 bd Administered Medications: No medications were administered Disposition: 08/25/19 12:46 Discharged to Home. Impression: Dehydration, Ileitis. - Condition is Stable. - Discharge Instructions: Dehydration, Adult, Diarrhea, Adult. - Prescriptions for Zofran ODT 4 mg Oral tablet,disintegrating - place 1 tablet by TRANSLINGUAL route every 8 hours As needed; 20 tablet. Bactrim DS 800- 160 mg Oral Tablet - take 1 tablet by ORAL route every 12 hours for 10 days; 20 tablet. - Medication Reconciliation Form, Thank You Letter, Antibiotic Education, Prescription Opioid Use, Work release form form. - Follow up: Private Physician; When: As needed; Reason: Recheck today's complaints, Re-evaluation by your physician. - Problem is new. - Symptoms have improved. Signatures: Dispatcher [employer] EDMS Dayna Lepe Roman, MD MD rn Barber, Rebecca, RN RN rb1 Char Singleton RN RN Corrections: (The following items were deleted from the chart) 13:27 12:46 08/25/2019 12:46 Discharged to Home. Impression: Dehydration; Ileitis. Condition rb1 is Stable. Forms are Medication Reconciliation Form, Thank You Letter, Antibiotic Education, Prescription Opioid Use. Follow up: Private Physician; When: As needed; Reason: Recheck today's complaints, Re-evaluation by your physician. Problem is new. Symptoms have improved. rn
[2019-08-25 15:18] LABS: C.diff Antigen/Toxin Ag neg : Tox neg (NEG : NEG)
== END 2019-08-25 13:27 | disposition home or self-care (01) ==
LOC: ER 09:00
DX: E86.0 Dehydration (principal); K52.9 Noninfective gastroenteritis and colitis, unspecified
CPT/HCPCS: 36415; 74177; 80048; 80076; 81003; 81025; 83690; 85025; 87045; 87046; 87324; 87449; 99284; Q9967

== ENCOUNTER 2023-03-27 13:19 | Emergency (ER) | payer OTHER ==
--- OUTSIDE RECORDS SUMMARY | 2023-03-27 13:22 | XMS REPORT | Continuity of Care Document ---
:1975 Author Organization [facility] t Address [address] [place] [id number] Care Team Providers Name Role Phone Baldomero Zhou MD Primary Care Physician [phone] YULIYA MULTANI Attending Clinician Unavailable Yuliya Coburn Attending Clinician Unknown, Attending Attending Clinician Unavailable Doctor Unassigned, [place] Attending Clinician Unavailable ISMA Attending Clinician Unavailable CARMELINA BLACK Attending Clinician Unavailable Carmelina Black MD Attending Clinician CRISTY MICHELLE Attending Clinician Unavailable JULIANA MASTERS Attending Clinician Unavailable Baldomero Zhou MD Attending Clinician Kevin Gallego MD Attending Clinician Nurse, Pcp Immunization Attending Clinician Unavailable KEVIN GALLEGO Attending Clinician Unavailable Radiology Attending Clinician Unavailable Lab, Adc Fam Pob I Attending Clinician Unavailable RADIOLOGY Attending Clinician Unavailable Only, Pcp Test Attending Clinician Unavailable Rafita Talbot MD Attending Clinician RAFITA TALBOT Attending Clinician Unavailable LUCINDA ODONNELL Attending Clinician Unavailable CLAUDIA MORGAN Attending Clinician Unavailable BALDOMERO ZHOU Attending Clinician Unavailable Zac Quintero MD Attending Clinician ZAC QUINTERO Attending Clinician Unavailable 2, Adc Lab Attending Clinician Unavailable MAR TRAORE Attending Clinician Unavailable JANEEN VANN Attending Clinician Unavailable Helen Flores RN Attending Clinician Unavailable Jan Bowser MD Attending Clinician Nurse, Chucky Pcp Assessment Clinic Attending Clinician Unavail able UNKNOWN, ATTENDING Attending Clinician Unavailable Rosa Maria QUIJANO, Gabi Attending Clinician Unavailable Cammie Mijares Attending Clinician CAMMIE WHITNEY Attending Clinician Unavailable Claudia Morgan PA-C Attending Clinician 1, Adc Lab Attending Clinician Unavailable ISMA Admitting Clinician Unavailable Payers Payer Name Policy Type Policy Number Effective Date Expiration Date Keiko murillo CIG[employer] II [id number] 2020 00:00:00 [place] [id number] 2019 EMPLOYEE PLAN 00:00:00 Problems Condition Condition Condition Status Onset Resolution Last Treating Co mments Source Name Details Category Date Date Treatment Clinician Date Bilateral Bilateral Disease Active Uni vers hand pain hand pain 2-21 ity of 00:00: [place] [facility] Low back Low back Disease Active Unive rs pain, pain, 2-21 ity of [place] d back 00 Medical pain pain Branch laterality laterality , , unspecifie unspecifie d d chronicity chronicity , , unspecifie unspecifie d whether d whether sciatica sciatica present present 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 2-21 [place] of [place] spine 00 [place] 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-25 [place] of intraepith intraepith [place] elial elial 00 Medical lesion lesion Branch (LGSIL) on (LGSIL) on Papanicola Papanicola ou smear ou smear of cervix of cervix Decreased Decreased Disease Active 2014-09 Uni vers libido libido 2-08 ity of 00:00: [place] [facility] Depression Depression Disease Active 2014-09 U nivers 2-08 ity of 00:00: [place] [address] Medical Branch Hypoactive Hypoactive Disease Active 2014-09 U nivers sexual sexual 2-08 ity of desire desire 00:00: [place] disorder disorder 00 Medica l Branch Substance Substance Disease Active 2014-09 Uni vers or or 2-08 [place] of medication medication [place] -induced -induced 00 Medica [place] sexual sexual Branch dysfunctio dysfunctio n n 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 A1C elevated; not Dx as Diabetic Allergies, Adverse Reactions, Alerts Allergy Allergy Status Severity Reaction(s) Onset Inactive Treating Comm ents Source Name Type Date Date Clinician NO KNOWN Drug Active Univers ALLERGIE Class ity of S [facility] Family History Family Member Diagnosis Comments Start Date Stop Date Source Maternal Cancer [place] of grandmother [facility] Natural mother Asthma [facility] Family member defects Universi ty [facility] Family member Breast Cancer Universi ty [facility] Family member Colon Cancer Universit y [facility] Family [facility] Depression [facility] Family member Diabetes [facility] Family member Genetic [facility] Family member Heart [facility] Family member Hypertension Universit y [facility] Family member Mental [facility] member Neurological Universit y [facility] Family member Osteoporosis Universit y of [facility] Family member Other - see [facility] Family member Ovarian Cancer Univers ity [facility] Family member Psychiatry [facility] Family member Uterine Cancer Univers [facility] Natural father Arthritis [facility] Natural father High cholesterol [facility] Social History Social Habit Start Date Stop Date Quantity Comments Source Exposure to 2022-12-04 2022-12-14 Not sure University of SARS-CoV-2 00:00:00 17:40:00 [facility] (event) [place] Alcohol intake 2022-12-14 2022-12-14 .29 /d University 00:00:00 00:00:00 [facility] Tobacco use and 2022-12-14 2022-12-14 Smokeless tobacco Un iversity of exposure 00:00:00 00:00:00 non-user [facility] Sex [birth year] At [birth year] Universit y of 00:00:00 00:00:00 [facility] Smoking Status Start Date Stop Date Source Never smoked tobacco [facility] Medications Ordered Filled Start Stop Current Ordering Indication Dosage Frequency Signature Comments Components Source Medication Medication Date Date Medication? Clinician (SIG) Name Name amoxicillin 2022- No [id number] 1{tbl} Take 1 Univers -clavulanat 12-14 tablet by it y of e 00:00: 04:59 mouth in [place] (AUGMENTIN) 00 :00 the Medical 875-125 mg morning Branch per tablet and 1 tablet in the evening. Do all this for 10 days. albuterol 2022- No [id number] 2{puff} Inhale 2 Univers 90 12-1411 Puffs ity of mcg/actuati 00:00: 04:59 [place] 6 [place] inhaler 00 :00 (six) Medical hours as Branch needed for Wheezing for up to 10 days. predniSONE 2022- No [id number] 40mg Take 2 Univers 20 mg 12-14 tablets by ity of tablet 00:00: 04:59 mouth in [place] 00 :00 the Medical morning Branch for 5 days. codeine-gua 2022- No 10mL Take 10 mL Univers ifenesin 12-14 by mouth ity of 10-100 mg/5 00:00: 04:59 [place] 6 [place] mL oral 00 :00 (six) Medical solution hours as Branch needed for Cough for up to 5 days. Indication s: cough acetaminoph 2021- No 1000mg 1,000 mg, Univers en 12-22 04-08 Oral, ity of (TYLENOL) 10:00: 10:06 ONCE, 1 [place] tablet 00 :00 dose, On Medical 1,000 mg 12/22/21 Branc h at 0515, SIOBHAN oseltamivir Yes [id number] 75mg Take 1 U nivers (TAMIFLU) 12-22 capsule by ity of 75 mg 00:00: mouth 2 [place] capsule 00 (two) Medical times Branch daily. ibuprofen 2022-0 Yes [id number] 800mg Take 1 Un meggan 800 mg 4-08 tablet by ity of tablet 00:00: mouth [place] 00 every 8 Medical (eight) Branch hours as needed for Pain (scale 4-6). benzonatate 2021-0 Yes [id number] 100mg Take 1 Univers 100 mg 4-08 capsule by ity of capsule 00:00: mouth 3 [place] 00 (three) Medical times Branch daily as needed for Cough. ondansetron 2021-0 Yes [id number] 4mg Take 1 U nivers 4 mg 4-08 tablet by ity of disintegrat 00:00: mouth [place] ing tablet 00 every 4 Medica l (four) Branch hours as needed for Nausea and Vomiting (N/V). oseltamivir 2021-0 Yes [id number] 75mg Take 1 U nivers (TAMIFLU) 4-08 capsule by ity of 75 mg 00:00: mouth 2 [place] capsule 00 (two) Medical times Branch daily. ibuprofen 2021-0 Yes [id number] 800mg Take 1 Un meggan 800 mg 4-08 tablet by ity of tablet 00:00: mouth [place] 00 every 8 Medical (eight) Branch hours as needed for Pain (scale 4-6). benzonatate 2021-0 Yes [id number] 100mg Take 1 Univers 100 mg 4-08 capsule by ity of capsule 00:00: mouth 3 [place] 00 (three) Medical times Branch daily as needed for Cough. ondansetron 2021-0 Yes [id number] 4mg Take 1 U nivers 4 mg 4-08 tablet by ity of disintegrat 00:00: mouth [place] ing tablet 00 every 4 Medica l (four) Branch hours as needed for Nausea and Vomiting (N/V). oseltamivir 2021-0 Yes [id number] 75mg Take 1 U nivers (TAMIFLU) 4-08 capsule by ity of 75 mg 00:00: mouth 2 [place] capsule 00 (two) Medical times Branch daily. ibuprofen 2021-0 Yes [id number] 800mg Take 1 Un meggan 800 mg 4-08 tablet by ity of tablet 00:00: mouth [place] 00 every 8 Medical (eight) Branch hours as needed for Pain (scale 4-6). benzonatate 2021-0 Yes [id number] 100mg Take 1 Univers 100 mg 4-08 capsule by ity of capsule 00:00: mouth 3 [place] 00 (three) Medical times Branch daily as needed for Cough. ondansetron 0 Yes [id number] 4mg Take 1 U nivers 4 mg 4-08 tablet by ity of disintegrat 00:00: mouth [place] ing tablet 00 every 4 Medica l (four) Branch hours as needed for Nausea and Vomiting (N/V). traZODone 2021-0 Yes [id number] 100mg Take 1 U nivers 100 mg 2-21 tablet by ity of tablet 00:00: mouth at [place] 00 bedtime. Medical Branch venlafaxine 0 Yes [id number] 150mg Take 1 Univers XR 150 mg 2-21 capsule by ity of 24 hr 00:00: mouth [place] capsule 00 daily with Medica l breakfast. Branch traZODone 0 Yes [id number] 100mg Take 1 U nivers 100 mg 2-21 tablet by ity of tablet 00:00: mouth at [place] 00 bedtime. Medical Branch venlafaxine 0 Yes [id number] 150mg Take 1 Univers XR 150 mg 2-21 capsule by ity of 24 hr 00:00: mouth [place] capsule 00 daily with Medica l breakfast. Branch traZODone 0 Yes [id number] 100mg Take 1 U nivers 100 mg 2-21 tablet by ity of tablet 00:00: mouth at [place] 00 bedtime. Medical Branch venlafaxine 0 Yes [id number] 150mg Take 1 Univers XR 150 mg 2-21 capsule by ity of 24 hr 00:00: mouth [place] capsule 00 daily with Medica l breakfast. Branch traZODone 0 Yes [id number] 100mg Take 1 U nivers 100 mg 2-21 tablet by ity of tablet 00:00: mouth at [place] 00 bedtime. Medical Branch venlafaxine 0 Yes [id number] 150mg Take 1 Univers XR 150 mg 2-21 capsule by ity of 24 hr 00:00: mouth [place] capsule 00 daily with Medica l breakfast. Branch traZODone 2021-0 2021- No [id number] 100mg Take 1 Univers 100 mg 2-03 02-21 tablet by ity of tablet 00:00: 00:00 mouth at [place] 00 :00 bedtime. Medical Branch venlafaxine 2021-0 2021- No [id number] 150mg Take 2 Univers XR 75 mg 24 2-03 02-21 capsules ity of hr capsule 00:00: 00:00 [place] mouth [place] 00 :00 daily with Medical breakfast. Branch busPIRone 2020-09 Yes [id number] 10mg Take 1 U nivers 10 mg 0-07 tablet by ity of tablet 00:00: mouth 2 (two) Medical times Branch daily. busPIRone 2020-09 Yes [id number] 10mg Take 1 U nivers 10 mg 0-07 tablet by ity of tablet 00:00: mouth 2 (two) Medical times Branch daily. busPIRone 2020-09 Yes [id number] 10mg Take 1 U nivers 10 mg 0-07 tablet by ity of tablet 00:00: mouth 2 (two) Medical times Branch daily. busPIRone 2020-09 Yes [id number] 10mg Take 1 U nivers 10 mg 0-07 tablet by ity of tablet 00:00: mouth 2 (two) Medical times Branch daily. traZODone 2020-09- No [id number] 100mg Take 1 Univers 100 mg 0-07 02-03 tablet by ity of tablet 00:00: 00:00 mouth at [place] 00 :00 bedtime. Medical Branch venlafaxine 2020-09- No [id number] 150mg Take 2 Univers XR 75 mg 24 0-07 02-03 capsules ity of hr capsule 00:00: 00:00 by mouth [place] 00 :00 daily with Medical breakfast. Branch methocarbam Yes [id number] 500mg Take 1 Univers oL 500 mg 2-21 tablet by ity o f tablet 00:00: mouth 4 (four) Medical times Branch daily as needed (muscle pain or spasm). meloxicam Yes [id number] 15mg Take 1 U nivers 15 mg 2-21 tablet by ity of tablet 00:00: mouth once 00 daily as Medical needed for Branch Pain or Inflammati on. Take with food. methocarbam Yes [id number] 500mg Take 1 Univers oL 500 mg 2-21 tablet by ity o f tablet 00:00: mouth 4 (four) Medical times Branch daily as needed (muscle pain or spasm). meloxicam Yes [id number] 15mg Take 1 U nivers 15 mg 2-21 tablet by ity of tablet 00:00: mouth once [place] 00 daily as Medical needed for Branch Pain or Inflammati on. Take with food. methocarbam 0 Yes [id number] 500mg Take 1 Univers oL 500 mg 2-21 tablet by ity o f tablet 00:00: mouth 4 [place] 00 (four) Medical times Branch daily as needed (muscle pain or spasm). meloxicam 0 Yes [id number] 15mg Take 1 U nivers 15 mg 2-21 tablet by ity of tablet 00:00: mouth once [place] 00 daily as Medical needed for Branch Pain or Inflammati on. Take with food. methocarbam 0 Yes [id number] 500mg Take 1 Univers oL 500 mg 2-21 tablet by ity o f tablet 00:00: mouth 4 [place] 00 (four) Medical times Branch daily as needed (muscle pain or spasm). meloxicam 0 Yes [id number] 15mg Take 1 U nivers 15 mg 2-21 tablet by ity of tablet 00:00: mouth once [place] 00 daily as Medical needed for Branch Pain or Inflammati on. Take with food. TESTOSTERON Yes by [employer] E IM 2-19 Intramuscu ity of 15:19: lar route. [place] [address] Medical Branch TESTOSTERON Yes by Univer s E IM 2-19 Intramuscu ity of 15:19: lar route. [place] [address] Medical Branch TESTOSTERON Yes by [employer] E IM 2-19 Intramuscu ity of 15:19: lar route. [place] [address] Medical Branch TESTOSTERON Yes by Univer s E IM 2-19 Intramuscu ity of 15:19: lar route. [place] [address] Medical Branch progesteron Yes 100mg Take 100 U nivers e 100 mg 2-19 mg by ity of capsule 14:51: mouth [place] 42 daily. Medical Branch progesteron 0 Yes 100mg Take 100 U nivers e 100 mg 2-19 mg by ity of capsule 14:51: mouth [place] 42 daily. Medical Branch progesteron 0 Yes 100mg Take 100 U nivers e 100 mg 2-19 mg by ity of capsule 14:51: mouth [place] 42 daily. Medical Branch progesteron Yes 100mg Take 100 U nivers e 100 mg 2-19 mg by ity of capsule 14:51: mouth [place] 42 daily. Medical Branch LACTOBACILL 0 Yes Take by Uni vers US 9-04 mouth. ity of ACIDOPHILUS 15:43: [place] (PROBIOTIC 29 Medical ORAL) Branch LACTOBACILL Yes Take by Uni vers US 9-04 mouth. ity of ACIDOPHILUS 15:43: [place] (PROBIOTIC 29 Medical ORAL) Branch LACTOBACILL Yes Take by Uni vers US 9-04 mouth. ity of ACIDOPHILUS 15:43: [place] (PROBIOTIC 29 Medical ORAL) Branch LACTOBACILL Yes Take by Uni vers US 9-04 mouth. ity of ACIDOPHILUS 15:43: [place] (PROBIOTIC 29 Medical ORAL) [place] MULTIVITAMI Yes Take by Uni vers N ORAL 7-12 mouth. ity of 09:32: [address] MULTIVITAMI Yes Take by Uni vers N ORAL 7-12 mouth. ity of 09:32: [address] MULTIVITAMI Yes Take by Uni vers N ORAL 7-12 mouth. ity of 09:32: [address] MULTIVITAMI Yes Take by Uni vers N ORAL 7-12 mouth. ity of 09:32: [address] Immunizations Ordered Filled Immunization Date Status Comments [facility] e Immunization Name Name SARS-COV-2 COVID-19 2020-12-06 Completed Unive rsity of PFIZER VACCINE 00:00:00 [facility] SARS-COV-2 COVID-19 2020-12-06 Completed Unive rsity of PFIZER VACCINE 00:00:00 [facility] SARS-COV-2 COVID-19 2020-12-06 Completed Unive rsity of PFIZER VACCINE 00:00:00 [facility] SARS-COV-2 COVID-19 2020-12-06 Completed Unive rsity of PFIZER VACCINE 00:00:00 [facility] SARS-COV-2 COVID-19 2020-11-15 Completed Unive rsity of PFIZER VACCINE 00:00:00 [facility] SARS-COV-2 COVID-19 2020-11-15 Completed Unive rsity of PFIZER VACCINE 00:00:00 [facility] SARS-COV-2 COVID-19 2020-11-15 Completed Unive rsity of PFIZER VACCINE 00:00:00 [facility] SARS-COV-2 COVID-19 2020-11-15 Completed Unive rsity of PFIZER VACCINE 00:00:00 [facility] Influenza Virus 2020-06-16 Completed Universit y of Vaccine 00:00:00 [facility] Influenza Virus 2020-06-16 Completed Universit y of Vaccine 00:00:00 [facility] Influenza Virus 2020-06-16 Completed Universit y of Vaccine 00:00:00 [facility] Influenza Virus 2020-06-16 Completed Universit y of Vaccine 00:00:00 [facility] TDAP 2016-02-08 Completed University of 00:00:00 [facility] TDAP 2016-02-08 Completed University of 00:00:00 [facility] TDAP 2016-02-08 Completed University of 00:00:00 [facility] TDAP 2016-02-08 Completed University of 00:00:00 [facility] Vital Signs Vital Name Observation Time Observation Value Comments Source Systolic blood 2022-12-14 22:48:00 133 mm[Hg] Univer sity of pressure [facility] Diastolic blood 2022-12-14 22:48:00 83 mm[Hg] Unive rsity of pressure [facility] Heart rate 2022-12-14 22:47:00 71 /min [facility] Body temperature 2022-12-14 22:47:00 36.89 Amelie [facility] Respiratory rate 2022-12-14 22:47:00 18 /min [facility] Body height 2022-12-14 22:47:00 172.7 cm [facility] Body weight 2022-12-14 22:47:00 87.363 kg [facility] BMI 2022-12-14 22:47:00 29.28 kg/m2 [facility] Oxygen saturation in 2022-12-14 22:47:00 99 /min [place] of Arterial blood by [facility] Pulse oximetry Branch Systolic blood 2021-12-22 11:08:00 100 mm[Hg] Univer sity of pressure [facility] Diastolic blood 2021-12-22 11:08:00 63 mm[Hg] Unive rsity of pressure [place] [facility] Heart rate 2021-12-22 11:08:00 78 /min Universi ty of [place] [facility] Body temperature 2021-12-22 11:08:00 38.11 Amelie Univ ersity of [place] [facility] Respiratory rate 2021-12-22 11:08:00 20 /min Univ ersity of [place] [facility] Oxygen saturation in 2021-12-22 11:08:00 98 /min University of Arterial blood by [facility] Pulse oximetry Branch Body height 2021-12-22 09:50:00 172.7 cm Universi ty of [place] [facility] Body weight 2021-12-22 09:50:00 88.905 kg Universi ty of [place] [facility] BMI 2021-12-22 09:50:00 29.80 kg/m2 Universi ty of [place] [facility] Systolic blood 2021-06-22 17:13:00 119 mm[Hg] Univer sity of pressure [place] [facility] Diastolic blood 2021-06-22 17:13:00 82 mm[Hg] Unive rsity of pressure [place] [facility] Heart rate 2021-06-22 17:13:00 64 /min Universi ty of [place] [facility] Respiratory rate 2021-06-22 17:13:00 18 /min Univ ersity of [place] [facility] Body height 2021-06-22 17:13:00 172.7 cm Universi ty of [place] [facility] Body weight 2021-06-22 17:13:00 89.812 kg Universi ty of [place] [facility] BMI 2021-06-22 17:13:00 30.11 kg/m2 Universi ty of [place] [facility] Body temperature 2020-11-04 20:48:00 36.22 Amelie Univ ersity of [place] [facility] Oxygen saturation in 2020-04-21 15:52:00 97 /min University of Arterial blood by [facility] Pulse oximetry Branch Procedures Procedure Date / Time Performed Performing Clinician [facility] e CONSENT/REFUSAL FOR 2022-12-14 22:40:35 Doctor Unassigned, [facility] Name Medical Branch TREATMENT RAPID STREP SCREEN 2021-12-22 10:09:00 [facility] RAPID INFLUENZA A/B 2021-12-22 10:09:00 Carmelina Black Universi ty of [facility] COVID-19 (ID NOW 2021-12-22 10:09:00 Carmelina Black [facility] RAPID TESTING) [facility] NOTICE OF PRIVACY 2021-12-22 09:44:56 Doctor Unassigned, No Univ [facility] PRACTICES Name [facility] CONSENT/REFUSAL FOR 2021-12-22 09:43:53 Doctor Unassigned, No [facility] AND Name [facility] TREATMENT Encounters Start End Encounter Admission Attending Care Care Encounter Source Date/Time Date/Time Type Type Clinicians Facility Department ID 2022-12-14 2022-12-14 Outpatient R NERISSA [facility] [id number] Univers 17:40:00 18:05:34 REEEshaU itrita [facility] 2022-12-14 2022-12-14 Urgent Yuliya Multani [facility] [id number] Univers 17:40:00 18:05:34 Care Unknown, Attending HEALTH [id number] ity of [place] 4.2.7.2.686 Pradip as ARNOLD?BLEA [phone] [address] MEDICAL OFFICE BUILDING 2022-12-14 2022-12-14 Orders Doctor THRASHER [id number] Univers 00:00:00 00:00:00 Only Unassigned, LICHA [id number] ity of [place] [facility] [id number] Pradip as [id number] [address] 2022-04-12 2022-04-12 Outpatient DICLEMENTE_ RAFA [facility] [id number] [place] 00:00:00 00:00:00 LARA 0728 da [facility] 2021-12-22 2021-12-22 Emergency X WAYNE NDJOLYNN ERT [id number] Univers 04:54:00 06:11:00 CARMELINA soria [facility] 2021-12-22 2021-12-22 Emergency Wayne [facility] [id number] Univers 04:54:00 06:11:00 Carmelina RUSSO [id number] i ty of [place] 4.2.7.2.686 [facility] [id number] [facility] 084 [place] 2021-12-21 2021-12-21 Outpatient CRISTY MORALES [facility] [id number] Univers 12:45:00 12:45:00 ity of [facility] 2021-06-22 2021-06-22 Outpatient CRISTY MORALES [facility] [id number] Univers 12:45:00 12:45:00 ity of [facility] 2021-06-22 2021-06-22 Orders Doctor [id number] Univers 00:00:00 00:00:00 Only Unassigned, [id number] ity of [place] 3.104.2.7 [place] .[id number] Medica l .8 [place] 2021-06-22 2021-06-22 Travel 1.2.840.1 [id number] Univers 00:00:00 00:00:00 [id number] ity of 3.104.2.7 4.2.7.3.698 [place] .[id number] 084.8 Medica l .8 [place] 2021-04-20 2021-04-20 Outpatient CRISTY MORALES [facility] [id number] Univers 14:15:00 14:15:00 ity of [facility] 2021-01-31 2021-01-31 Outpatient Darci GIBBONSMASTERS [facility] [id number] Univers 14:40:00 14:40:00 JULIANA ity of [facility] 2021-01-11 2021-01-11 Telephone Jori, 1.2.840.4 [id number] Univers 00:00:00 00:00:00 Wondiful A 98301.1.1 i ty of 3.104.2.7 [place] .[id number] Medica l .8 [place] 2020-12-06 2020-12-06 Imm/Inj Kevin Gallego 1.2.840.1 [id number] Univers 13:49:39 13:59:39 Visit Nurse, Pcp Immunization [id number] ity of 3.104.2.7 [place] .[id number] Medica l .8 [place] 2020-12-06 2020-12-06 Outpatient Darci GALLEGO [facility] [id number] Univers 13:40:00 13:40:00 KEVIN ity [facility] 2020-11-15 2020-11-15 [facility] [id number] Univers 13:40:00 13:40:00 KEVIN ity [facility] 2020-11-04 2020-11-04 [facility] 1.2.434.317 [id number] Univers 16:14:16 23:59:00 Encounter Wondiful A Ferney 350.1.13.10 ity of [place] 4.2.7.2.686 [place] [phone] [facility] [address] 2020-11-04 2020-11-04 [facility] [id number] Univers 16:00:00 16:13:00 Encounter Wondiful A Ferney 350.1.13.10 ity of [place] 4.2.7.2.686 [facility] [place] [phone] [facility] [address] 2020-11-04 2020-11-04 [facility] Radiology [facility] 1.2.840.114 [id number] Univers 10:40:00 15:59:00 Encounter Ferney 350.1.13.10 ity of [place] 4.2.7.2.686 [place] [phone] [facility] [address] 2020-11-04 2020-11-04 [facility], Adc Fam Pob I [facility] 1.2. 840.114 [id number] Univers 15:30:12 15:50:12 Visit Baldomero [facility] 350.1.13.1 0 ity of [place] 4.2.7.2.686 Pradip as Professio [phone] Or dical nal [address] [employer] 2020-11-04 2020-11-04 Office Jori [facility] 1.2.840.114 [id number] Univers 13:50:43 15:30:24 Visit Wondiful A Health 350.1.13.10 ity of [place] 4.2.7.2.686 Pradip as Howieio [phone] Or dical nal [address] [facility] 2020-11-04 2020-11-04 Outpatient R RADIOLOGY [facility] [id number] Univers 00:00:00 00:00:00 ity [facility] 2020-10-14 2020-10-14 Outpatient R KILLIAN, [facility] [id number] Univers 14:50:00 14:50:00 [facility] 2020-09[facility]29 2020-09-29 Laboratory Only, Pcp Test [facility] 1.2.840. 114 [id number] Univers 15:00:59 15:15:59 Only Talbot Rafita A PRIMARY 350.1.13.10 ity of [place]2.7.2.686 [place] [phone] Or dical [address] 2020-09-29 2020-09-29 Outpatient R SHAUN, [facility] [id number] Univers 15:00:00 15:00:00 RAFITA [facility] 2020-09-07 2020-09-07 Outpatient R BLAS, [facility] [id number] Univers 13:00:00 13:00:00 LUCINDA [facility] 2020-06-03 2020-06-03 Outpatient R EDDIE, [facility] [id number] Univers 13:30:00 13:30:00 CLAUDIA [facility] 2020-05-31 2020-05-31 Outpatient R JORI, [facility] [id number] Univers 14:30:00 14:30:00 WONDIFUL ity o f [facility] 2020-05-09 2020-05-09 Patient Doctor 1.2.840.4 [id number] Univers 00:00:00 00:00:00 Secure Msg Unassigned, 91408.1.1 ity of [place] 3.104.2.7 [place] .3.964746 Medica l .[address] 2020-05-02 2020-05-02 Office Leon, 1.2.840.9 [id number] Univers 09:55:51 17:09:32 Visit Zac Oates 36398.1.1 ity of 3.104.2.7 [place] .3.314796 Medica l .[address] [place] 2020-05-02 2020-05-02 Outpatient R LEON, [facility] [id number] Univers 10:00:00 10:00:00 ZAC ity of [facility] 2020-05-02 2020-05-02 Travel 1.2.840.1 1.2.077.312 [id number] Univers 00:00:00 00:00:00 03950.1.1 350.1.13.10 ity of 3.104.2.7 4.[place]7.3.698 [place] .3.362258 084.8 Medica l .[address] [place] 2020-04-21 2020-04-23 Office [place], 1.2.840.9 [id number] Univers 10:42:17 14:57:44 Visit Baldomero Merino 07925.1.1 i ty of 3.104.2.7 [place] .3.550133 Medica l .[address] [place] 2020-04-21 2020-04-21 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 Zhou 1.2.840.1 1 [id number] Univers 11:38:09 11:53:09 Visit 2, Adc Lab 18898.1.1 i ty of 3.104.2.7 [place] .3.067201 Medica l .[address] [place] 2020-04-21 2020-04-21 [facility] [id number] Univers 10:30:00 10:30:00 WONDIFUL ity o f [facility] 2020-04-21 2020-04-21 [facility] [id number] Univers 10:30:00 10:30:00 WONDIFUL ity o f [facility] 2020-04-21 2020-04-21 Orders Doctor 1.2.840.3 [id number] Univers 00:00:00 00:00:00 Only Unassigned, 78453.1.1 ity of [place] 3.104.2.7 [place] .3.512431 Medica l .[address] [place] 2020-04-21 2020-04-21 Travel 1.2.840.1 1.2.000.841 [id number] Univers 00:00:00 00:00:00 58815.1.1 350.1.13.10 ity of 3.104.2.7 4.[place].3.698 [place] .3.112365 084.8 Medica l .[address] [place] 2020-04-21 2020-04-21 Travel 1.2.840.1 1.2.387.337 [id number] Univers 00:00:00 00:00:00 59311.1.1 350.1.13.10 ity of 3.104.2.7 4[place].3.698 [place] .3.495005 084.8 Medica l .[address] [place] 2020-03-28 2020-03-28 Outpatient R EDDIE [facility] [id number] Univers 08:30:00 08:30:00 CLAUDIA [facility] 2020-02-01 2020-02-01 Travel 1.2.840.1 1.2.230.923 [id number] Univers 00:00:00 00:00:00 61019.1.1 350.1.13.10 ity of 3.104.2.7 4[place]7.3.698 [place] .3.982118 084.8 Medica l .[address] [place] 2020-01-15 2020-01-15 Outpatient R LEÓN, [facility] [id number] Univers 12:45:00 12:45:00 MAR drake [facility] 2020-01-15 2020-01-15 Outpatient R SELF, [facility] [id number] Univers 12:45:00 12:45:00 MAR drake [facility] 2020-01-13 2020-01-13 Outpatient R SOO [facility] [id number] Univers 16:00:00 16:00:00 JANEEN [facility] 2020-01-04 2020-01-04 Travel 1.2.840.1 1.2.489.535 [id number] Univers 00:00:00 00:00:00 99957.1.1 350.1.13.10 ity of 3.104.2.7 4[place].3.698 [place] .3.843260 084.8 Medica l .[address] 2020-01-02 2020-01-02 Telephone Sandra, 1.2.840.0 [id number] Univers 00:00:00 00:00:00 Helen De Jesus 70211.1.1 it y of 3.104.2.7 [place] .3.976407 Medica l .[address] 2019-12-31 2019-12-31 Nurse Unknown, Attending 1.2.840.1 [id number] Univers 16:06:56 18:01:39 Visit Jan Bowser 84618.1.1 ity of Nurse, [facility] 3.104.2 .7 [place] .3.323248 Medica l .[address] 2019-12-31 2019-12-31 Outpatient R BILLY, [facility] [id number] Univers 16:05:00 16:05:00 ATTENDING ity [facility] 2019-12-31 2019-12-31 Telephone Rosa Maria, 1.2.840.9 [id number] Univers 00:00:00 00:00:00 Gabi 92315.1.1 ity of 3.104.2.7 [place] .3.989621 Medica l .[address] [place] 2019-11-25 2019-11-25 Hospital Ghanshyam, 1.2.840.4 [id number] Univers 14:51:00 23:59:00 Encounter Cammie 00551.1.1 it y of 3.104.2.7 [place] .3.890025 Medica l .[address] 2019-11-25 2019-11-25 [id number] Univers 00:00:00 00:00:00 CAMMIE ity [facility] 2019-05-12 2019-05-12 Telephone Edide, 1.2.840.1 [id number] Univers 00:00:00 00:00:00 Claudia 44265.1.1 ity of 3.104.2.7 [place] .3.792589 Medica l .[address] 2019-05-11 2019-05-11 Telephone Eddie, 1.2.840.0 [id number] Univers 00:00:00 00:00:00 Claudia 93856.1.1 ity of 3.104.2.7 [place] .3.061174 Medica l .[address] 2019-04-24 2019-04-24 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 Claudia Morgan 1.2.840.1 [id number] Univers 07:54:40 08:09:40 Visit 1, Adc Lab 23473.1.1 i ty of 3.104.2.7 [place] .3.486031 Medica l .[address] [place] 2019-04-24 2019-04-24 Orders Doctor 1.2.840.7 [id number] Univers 00:00:00 00:00:00 Only Unassigned, 02616.1.1 ity of [place] 3.104.2.7 [place] .3.952992 Medica l .[address] 2019-04-13 2019-04-13 [facility], 1.2.840.2 [id number] Univers 15:37:32 23:59:00 Encounter Claudia 72981.1.1 it y of 3.104.2.7 [place] .3.086191 Medica l .[address] [place] 2019-04-13 2019-04-13 Orders Doctor 1.2.840.0 [id number] Univers 00:00:00 00:00:00 Only Unassigned, 81939.1.1 ity of [place] 3.104.2.7 [place] .3.728447 Medica l .[address] 2019-03-30 2019-03-30 [facility], 1.2.840.3 [id number] Univers 08:00:00 23:59:00 Encounter Claudia 06387.1.1 it y of 3.104.2.7 [place] .3.453487 Medica l .[address] 2019-03-30 2019-03-30 [facility] Eddie, 1.2.840.6 [id number] Univers 00:00:00 00:00:00 Management Claudia 11489.1.1 i ty of 3.104.2.7 [place] .3.469987 Medica l .8 [place] 2019-03-27 2019-03-27 Office Eddie, 1.2.840.9 [id number] Univers 08:47:59 09:47:17 Visit Claudia 03514.1.1 ity of 3.104.2.7 [place] .3.652629 Medica l .[address] 2019-03-27 2019-03-27 Orders Doctor 1.2.840.2 [id number] Univers 00:00:00 00:00:00 Only Unassigned, 86508.1.1 ity of [place] 3.104.2.7 [place] .3.455232 Medica l .[address] Results This patient has no known results.
[2023-03-27] MEDS ORDERED: NA CHLORIDE 0.9% 1,000 ML ONE (13:56)
[2023-03-27] MEDS ORDERED: KETOROLAC 30 MG/ML INJ ONE (13:56)
[2023-03-27] MEDS ORDERED: PANTOPRAZOLE 40 MG INJ ONE (13:56)
[2023-03-27 14:35] LABS: Absolute Lymphocytes (CBC) 1.1 K/uL (0.7-4.9); Hematocrit 44.2 % (36.0-45.0); Lymphocytes % 22.8 % (15.3-44.8); MCV 83.4 fL (80-100); MPV 8.9 fL (7.6-11.3)
--- NOTE | 2023-03-27 14:35 | RAD REPORT ---
EXAM DESCRIPTION: RAD - Chest Single View - 03/27/2023 2:24 pm CLINICAL HISTORY: N/V/D COMPARISON: CHEST SINGLE VIEW dated 11/24/2009 FINDINGS: Lines: None. Lungs: No evidence of edema or pneumonia. Pleural: No significant pleural effusions or pneumothorax. Cardiac: The heart size is within normal limits. Mediastinum: Within normal limits. Bones: No acute fractures. Other: None IMPRESSION: No acute cardiopulmonary disease.
[2023-03-27 14:55] LABS: ALT/SGPT 21 U/L (13-56); AST/SGOT 16 U/L (15-37); Albumin 3.7 g/dL (3.4-5.0); Alkaline Phosphatase 104 U/L (45-117); BUN Blood Urea Nitrogen 14 mg/dL (7-18); Bicarbonate 27 mEq/L (21-32); Bilirubin Total 0.4 mg/dL (0.2-1.0); Glomerular Filtration Rate 72 ml/min (=/>90); Glucose Level 91 mg/dL (74-106); Magnesium 2.2 mg/dL (1.6-2.4); Potassium 3.7 mEq/L (3.5-5.1); Protein, Total 7.7 g/dL (6.4-8.2); Sodium Level 135 mEq/L (136-145); Thyroid Stimulating Hormone 0.879 uIU/mL (0.358-3.740)
[2023-03-27 14:56] LABS: Bilirubin Direct < 0.1 mg/dL (0-0.2); Bilirubin Indirect, Calculated ND mg/dL (0.2-0.8); NT PRO-BNP < 5 pg/mL (<125); Troponin High Sensitivity < 3.0 pg/mL (<58.9)
--- NOTE | 2023-03-27 15:18 | RAD REPORT ---
EXAM DESCRIPTION: CTAbdomen Pelvis W Contrast - 03/27/2023 3:06 pm CLINICAL HISTORY: abd pain COMPARISON: Abdomen Pelvis W Contrast dated 06/08/2022; Abdomen Pelvis W Contrast dated 9; CT ABDOMEN PELVIS WO CONTRAST dated 11/30/2009 TECHNIQUE: CT of the abdomen and pelvis was performed. All CT scans are performed using dose optimization technique as appropriate and may include automated exposure control or mA/KV adjustment according to patient size. FINDINGS: Lower chest: No acute abnormality. Liver: No acute abnormality or suspicious lesions. Focal fat along the falciform ligament. Biliary: No biliary ductal dilatation. Cholecystectomy Stomach: No significant focal abnormality. Duodenum: No significant focal abnormality. Pancreas: 8 mm cystic lesion at the pancreatic neck. No pancreatic duct dilatation. No other mass emily ntified. This is unchanged since at least 2019. This is almost certainly benign. Spleen: No significant abnormality. Adrenal: No suspicious lesions. Kidney/ureter: No hydronephrosis. No renal calculi. Retroperitoneum: No retroperitoneal adenopathy. Vascular: No aneurysm. Bowel: No significant focal abnormality. No appendicitis. Peritoneum: No ascites or free air. Bladder: Grossly unremarkable. Reproductive: Uterine fibroid. Bones: No acute fracture. Other: n/a IMPRESSION: No acute intra-abdominal or pelvic finding.
--- NOTE | 2023-03-27 15:26 | ER ---
Nurse's Notes [facility] Name: Genna Doss Age: 48 yrs Sex: Female : 1975 Arrival Date: 03/27/2023 Time: 13:19 Bed 14 Private MD: Diagnosis: Nausea with vomiting, unspecified;Diarrhea, unspecified Presentation: 03/27 13:33 Chief complaint: N/V/D and upper abdominal pain x 6 days. Coronavirus screen: Client hb presents with at least one sign or symptom that may indicate coronavirus-19. Provider contacted for isolation considerations. Ebola Screen: No symptoms or risks identified at this time. Initial Sepsis Screen: Does the patient meet any 2 criteria? No. Patient's initial sepsis screen is negative. Does the patient have a suspected source of infection? No. Patient's initial sepsis screen is negative. Risk Assessment: Do you want to hurt yourself or someone else? Patient reports no desire to harm self or others. Onset of symptoms was March 21, 2023. 13:33 Method Of Arrival: Ambulatory 13:33 Acuity: MEE 3 hb Triage Assessment: 13:35 General: Appears uncomfortable, ill, Behavior is calm, cooperative, appropriate for ll1 age. Pain: Complains of pain in left upper quadrant Quality of pain is described as aching, crampy. GI: Reports lower abdominal pain, upper abdominal pain, cramping, diarrhea, nausea, vomiting. Historical: - Allergies: 13:34 No Known Allergies; hb - Home Meds: 13:34 Effexor XR 75 mg Oral cp24 1 cap nightly [Active]; Probiotic Oral [Active]; trazodone hb 100 mg Oral tab nightly [Active]; Estradiol Oral [Active]; - PMHx: 13:34 None; hb - PSHx: 13:34 Breast Reduction; Cholecystectomy; hb - Immunization history:: Adult Immunizations up to date. - Social history:: Smoking status: Patient denies any tobacco usage or history of. Screenin:45 [facility] ED Fall Risk Assessment (Adult) History of falling in the last 3 months, kc6 including since admission No falls in past 3 months (0 pts) Confusion or Disorientation No (0 pts) Intoxicated or Sedated No (0 pts) Impaired Gait No (0 pts) Mobility Assist Device Used No (0 pt) Altered Elimination No (0 pt) Score/Fall Risk Level 0 - 2 = Low Risk Oriented to surroundings, Maintained a safe environment, Educated pt \T\ family on fall prevention, incl call for assistance when getting out of bed, Assessed \T\ reinforced patient's understanding of fall precautions, Hourly rounding (assess needs \T\ fall precautionary measures) done. Abuse screen: Denies threats or abuse. Denies injuries from another. Nutritional screening: No deficits noted. Tuberculosis screening: No symptoms or risk factors identified. Assessment: 13:30 General: Appears in no apparent distress. comfortable, ill, Behavior is calm, kc6 cooperative, appropriate for age. Neuro: Sanford Agitation-Sedation Scale (RASS): 0 - Alert and Calm Level of Consciousness is awake, alert, obeys commands, Oriented to person, place, time, situation, Appropriate for age. Cardiovascular: Capillary refill < 3 seconds. Respiratory: Airway is patent Trachea midline Respiratory effort is even, unlabored, Respiratory pattern is regular, symmetrical. GI: Abdomen is flat, non-distended, Bowel sounds present X 4 quads. Abd is soft X 4 quads Reports diarrhea, intolerance of fluids, intolerance of food, nausea, vomiting. : No signs and/or symptoms were reported regarding the genitourinary system. Derm: No signs and/or symptoms reported regarding the dermatologic system. Skin is intact, is healthy with good turgor, Skin is pale. 14:30 Reassessment: Patient appears in no apparent distress at this time. No changes from kc6 previously documented assessment. Patient and/or family updated on plan of care and expected duration. Pain level reassessed. Patient is alert, oriented x 3, equal unlabored respirations, skin warm/dry/pink. 15:29 Reassessment: Patient appears in no apparent distress at this time. No changes from kc6 previously documented assessment. Patient and/or family updated on plan of care and expected duration. Pain level reassessed. Patient is alert, oriented x 3, equal unlabored respirations, skin warm/dry/pink. Vital Signs: 13:33 BP 127 / 92; Pulse 80; Resp 16; Temp 98.1(O); Pulse Ox 100% on R/A; Weight 81.65 kg; hb Height 5 ft. 9 in. ; Pain 4/10; 14:36 BP 118 / 81; Pulse 62; Resp 17 S; Pulse Ox 99% on R/A; kc6 15:30 BP 121 / 80; Pulse 71; Resp 16 S; Pulse Ox 100% on R/A; kc6 13:33 Body Mass Index 26.58 (81.65 kg, 175.26 cm) hb 13:33 Pain Scale: Adult hb ED Course: 13:20 Patient arrived in ED. am2 13:21 Shanta Diamond FNP-C is PHCP. snw 13:21 Joey Talbot MD is Attending Physician. snw 13:31 Arm band placed on Patient placed in an exam room, on a stretcher. hb 13:34 Triage completed. hb 13:34 Alexa Velez, RN is Primary Nurse. kc6 13:45 Patient has correct armband on for positive identification. Bed in low position. Call kc6 light in reach. Side rails up X2. Adult w/ patient. 14:07 EKG done, by ED staff, reviewed by Shanta XIONG COVID swab sent to lab. Flu mb4 and/or RSV swab sent to lab. 14:22 Inserted saline lock: 22 gauge in left wrist, using aseptic technique. Blood collected. kc6 14:25 Chest Single View In Process Unspecified. EDMS 15:08 Abdomen In Process Unspecified. EDMS 16:13 No provider procedures requiring assistance completed. IV discontinued, intact, kc6 bleeding controlled, No redness/swelling at site. Pressure dressing applied. Administered Medications: 14:21 Drug: NS 0.9% IV 1000 ml Route: IV; Rate: 1 bolus; Site: left wrist; kc6 15:29 Follow up: IV Status: Completed infusion; IV Intake: 1000ml kc6 14:21 Drug: Ketorolac IVP 30 mg Route: IVP; Site: left wrist; kc6 15:29 Follow up: Response: No adverse reaction kc6 14:22 Drug: Pantoprazole IVP 40 mg Route: IVP; Site: left wrist; kc6 15:29 Follow up: Response: No adverse reaction kc6 Medication: 16:13 VIS not applicable for this client. hb Intake: 15:29 IV: 1000ml; Total: 1000ml. kc6 Outcome: 15:25 Discharge ordered by . snw 16:13 Discharged to home ambulatory, with family. hb 16:13 Condition: stable 16:13 Discharge instructions given to patient, Instructed on discharge instructions, follow up and referral plans. medication usage, Demonstrated understanding of instructions, follow-up care, medications, Prescriptions given X 2. 16:13 Discharged to home ambulatory, with family. kc6 16:13 Condition: improved 16:13 Patient left the ED. kc6 Signatures: Dispatcher [employer] EDMS Shanta Diamond, KIA-C INJECTION WAX MOLDER-Csnw Char Singleton, RN RN Lis Franklin Chela Grover mb4 Gurdeep Pollard RN RN ll1 Alexa Velez RN RN kc6
--- NOTE | 2023-03-27 15:26 | EDPHYS ---
Physician Documentation [facility] Name: Genna Doss Age: 48 yrs Sex: Female : 1975 Arrival Date: 03/27/2023 Time: 13:19 Bed 14 Private MD: ED Physician Joey Talbot HPI: 03/27 13:42 This 48 yrs old Black Female presents to ER via Ambulatory with complaints of snw Nausea/Vomiting/Diarrhea, dehydration. 13:42 The patient presents to the emergency department with nausea, vomiting, diarrhea. snw Onset: The symptoms/episode began/occurred acutely, 6 day(s) ago, and became persistent. Associated signs and symptoms: Pertinent positives: diarrhea, nausea, vomiting, dizziness. Severity of symptoms: At their worst the symptoms were moderate. The patient has not experienced similar symptoms in the past. one ED visit last week for this illness. Historical: - Allergies: 13:34 No Known Allergies; hb - Home Meds: 13:34 Effexor XR 75 mg Oral cp24 1 cap nightly [Active]; Probiotic Oral [Active]; trazodone hb 100 mg Oral tab nightly [Active]; Estradiol Oral [Active]; - PMHx: 13:34 None; hb - PSHx: 13:34 Breast Reduction; Cholecystectomy; hb - Immunization history:: Adult Immunizations up to date. - Social history:: Smoking status: Patient denies any tobacco usage or history of. ROS: 13:41 Eyes: Negative for injury, pain, redness, and discharge, ENT: Negative for injury, snw pain, and discharge, Neck: Negative for injury, pain, and swelling, Cardiovascular: Negative for chest pain, palpitations, and edema, Respiratory: Negative for shortness of breath, cough, wheezing, and pleuritic chest pain. 13:41 Back: Negative for injury and pain, : Negative for injury, bleeding, discharge, and swelling, MS/Extremity: Negative for injury and deformity, Skin: Negative for injury, rash, and discoloration. 13:41 Psych: Negative for depression, anxiety, suicide ideation, homicidal ideation, and hallucinations. 13:41 Constitutional: Positive for body aches, malaise, poor PO intake. 13:41 Abdomen/GI: Positive for nausea, vomiting, and diarrhea. 13:41 Neuro: Positive for dizziness. Exam: 13:40 Head/Face: Normocephalic, atraumatic. Eyes: Pupils equal round and reactive to light, snw extra-ocular motions intact. Lids and lashes normal. Conjunctiva and sclera are non-icteric and not injected. Cornea within normal limits. Periorbital areas with no swelling, redness, or edema. ENT: Nares patent. No nasal discharge, no septal abnormalities noted. Tympanic membranes are normal and external auditory canals are clear. Oropharynx with no redness, swelling, or masses, exudates, or evidence of obstruction, uvula midline. Mucous membranes moist. Neck: Trachea midline, no thyromegaly or masses palpated, and no cervical lymphadenopathy. Supple, full range of motion without nuchal rigidity, or vertebral point tenderness. No Meningismus. Chest/axilla: Normal chest wall appearance and motion. Nontender with no deformity. No lesions are appreciated. Cardiovascular: Regular rate and rhythm with a normal S1 and S2. No gallops, murmurs, or rubs. Normal PMI, no JVD. No pulse deficits. Respiratory: Lungs have equal breath sounds bilaterally, clear to auscultation and percussion. No rales, rhonchi or wheezes noted. No increased work of breathing, no retractions or nasal flaring. Back: No spinal tenderness. No costovertebral tenderness. Full range of motion. 13:40 Neuro: Awake and alert, GCS 15, oriented to person, place, time, and situation. Cranial nerves II-XII grossly intact. Motor strength 5/5 in all extremities. Sensory grossly intact. Cerebellar exam normal. Normal gait. Psych: Awake, alert, with orientation to person, place and time. Behavior, mood, and affect are within normal limits. 13:40 Constitutional: The patient appears alert, lethargic, obviously ill. 13:40 Abdomen/GI: Inspection: abdomen appears normal, Bowel sounds: normal, Palpation: moderate abdominal tenderness, in the left upper quadrant. 13:40 Skin: Appearance: Color: pale. Vital Signs: 13:33 BP 127 / 92; Pulse 80; Resp 16; Temp 98.1(O); Pulse Ox 100% on R/A; Weight 81.65 kg; hb Height 5 ft. 9 in. ; Pain 4/10; 14:36 BP 118 / 81; Pulse 62; Resp 17 S; Pulse Ox 99% on R/A; kc6 15:30 BP 121 / 80; Pulse 71; Resp 16 S; Pulse Ox 100% on R/A; kc6 13:33 Body Mass Index 26.58 (81.65 kg, 175.26 cm) hb 13:33 Pain Scale: Adult hb MDM: 13:24 Patient medically screened. snw 15:24 Differential diagnosis: Nonspecific abd pain, gastritis, pancreatitis, viral snw gastroenteritis. Data reviewed: vital signs, nurses notes, lab test result(s), radiologic studies. I considered the following discharge prescriptions or medication management in the emergency department Medications were administered in the Emergency Department. See MAR. Counseling: I had a detailed discussion with the patient and/or guardian regarding: the historical points, exam findings, and any diagnostic results supporting the discharge/admit diagnosis, lab results, radiology results, the need for outpatient follow up, for definitive care, to return to the emergency department if symptoms worsen or persist or if there are any questions or concerns that arise at home. Response to treatment: the patient's symptoms have markedly improved after treatment. Special discussion: Based on the patient's Hx, exam, and Dx evaluation, there is no indication for emergent surgery or inpatient Tx. It is understood by the patient/guardian that if the Sx's persist or worsen they need to return immediately for re-evaluation. Based on the history and exam findings, there is no indication for further emergent testing or inpatient evaluation. I discussed with the patient/guardian the need to see the primary care provider for further evaluation of the symptoms. 03/27 13:34 Order name: Basic Metabolic Panel; Complete Time: 14:57 snw 03/27 13:34 Order name: CBC with Diff; Complete Time: 14:46 snw 03/27 13:34 Order name: LFT's; Complete Time: 14:57 snw 03/27 13:34 Order name: Magnesium; Complete Time: 14:57 snw 03/27 13:34 Order name: NT PRO-BNP; Complete Time: 14:57 snw 03/27 13:34 Order name: Troponin HS; Complete Time: 14:57 snw 03/27 13:34 Order name: TSH; Complete Time: 14:57 snw 03/27 14:14 Order name: Influenza Screen (A ; Complete Time: 14:51 EDMS 03/27 14:15 Order name: SARS-COV-2 RT PCR; Complete Time: 14:56 EDMS 03/27 15:38 Order name: Urine W/Microscopic (UAM); Complete Time: 15:59 snw 03/27 13:34 Order name: CT Abd/Pelvis - IV Contrast Only snw 03/27 13:43 Order name: Abdomen ; Complete Time: 15:23 EDMS 03/27 13:47 Order name: Chest Single View; Complete Time: 14:35 EDMS 03/27 13:34 Order name: EKG; Complete Time: 14:00 snw 03/27 13:34 Order name: Cardiac monitoring; Complete Time: 14:21 snw 03/27 13:34 Order name: EKG - Nurse/Tech; Complete Time: 14:21 snw 03/27 13:34 Order name: IV Saline Lock; Complete Time: 14:21 snw 03/27 13:34 Order name: Labs collected and sent; Complete Time: 14:21 snw 03/27 13:34 Order name: O2 Per Protocol; Complete Time: 13:45 snw 03/27 13:34 Order name: O2 Sat Monitoring; Complete Time: 13:45 snw EC:10 Rate is 77 beats/min. T waves are Flattened in leads II, III, aVF, V5, V6. Clinical snw impression: NSR w/ Non-specific ST/T Changes. Administered Medications: 14:21 Drug: NS 0.9% IV 1000 ml Route: IV; Rate: 1 bolus; Site: left wrist; kc6 15:29 Follow up: IV Status: Completed infusion; IV Intake: 1000ml kc6 14:21 Drug: Ketorolac IVP 30 mg Route: IVP; Site: left wrist; kc6 15:29 Follow up: Response: No adverse reaction kc6 14:22 Drug: Pantoprazole IVP 40 mg Route: IVP; Site: left wrist; kc6 15:29 Follow up: Response: No adverse reaction kc6 Disposition Summary: 03/27/23 15:25 Discharge Ordered Location: Home snw Condition: Stable snw Diagnosis - Nausea with vomiting, unspecified snw - Diarrhea, unspecified snw Followup: snw - With: Emergency Department - When: As needed - Reason: Worsening of condition Followup: snw - With: Private Physician - When: 2 - 3 days - Reason: Recheck today's complaints, Continuance of care, Re-evaluation by your physician Discharge Instructions: - Discharge Summary Sheet snw - Food Choices to Help Relieve Diarrhea, Adult snw - Nausea and Vomiting, Adult snw - Diarrhea, Adult, Crbl-ks-[id number] snw Forms: - Work release form snw - Medication Reconciliation Form snw - Thank You Letter snw - Antibiotic Education snw - Prescription Opioid Use snw - Patient Portal [email or web address] snw Prescriptions: - Zofran 4 mg Oral Tablet - take 1 tablet by ORAL route every 12 hours As needed; 20 tablet; Refills: 0, snw Product Selection Permitted - Pepcid 20 mg Oral Tablet - take 1 tablet by ORAL route once daily; 20 tablet; Refills: 0, Product snw Selection Permitted Signatures: Dispatcher [employer] EDMS Shanta Diamond FNP-C PROJECT DEVELOPER-Csnw Char Singleton RN RN Alexa Velez RN RN kc6 Corrections: (The following items were deleted from the chart) 14:27 14:00 Chest Single View+[email or web address] ordered. EDMS EDMS
[2023-03-27 15:57] LABS: Specific Gravity > 1.030 (1.005-1.030); Urine Bacteria <20 /HPF (<20); Urine Bilirubin NEGATIVE (Negative); Urine Blood Negative (Negative); Urine Clarity Extremely Turbid (Clear); Urine Color Yellow (Yellow); Urine Glucose NEGATIVE (Negative); Urine Mucus 4+ /HPF (None Seen); Urine Protein 1+ (Negative); Urine Urobilinogen Normal (Normal); Urine pH 5.5 (5.0-7.0)
[2023-03-27 16:35] VITALS: TEMP 98.1; O2SAT 100
[2023-03-27 16:37] VITALS: BP 121/80
--- NOTE | 2023-03-28 15:47 | EKG ---
Test Date: 2023-03-27 Test Time: 14:03:49 Acetylene Burner: MB MEASUREMENT RESULTS: Intervals: Rate: 77 ME: 146 QRSD: 80 QT: 386 QTc: 436 [place]: P: 53 ME: 146 QRS: 68 T: 75 INTERPRETIVE STATEMENTS: Normal sinus rhythm Normal ECG No previous ECG available for comparison Electronically Signed On 03-28-23 15:44:31 CDT by Tomas Castro
== END 2023-03-27 16:13 | disposition home or self-care (01) ==
LOC: ER 13:19
DX: R11.2 Nausea with vomiting, unspecified (principal); R19.7 Diarrhea, unspecified; Z20.822 Contact with and (suspected) exposure to COVID-19
CPT/HCPCS: 85025; 81001; 80048; 36415; 83735; 80076; 84443; 84484; 83880; 87635; 87804 ×2; 74177; 71045; Q9967; C9113; J7030; 93005

== ENCOUNTER 2024-04-25 21:18 | Emergency (ER) | payer OTHER, SELFPAY ==
--- OUTSIDE RECORDS SUMMARY | 2024-04-25 21:21 | XMS REPORT | Continuity of Care Document ---
Author Name Unknown Address [address] [facility] [place] [address] [facility] Address [address] 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 Name Role Phone BALDOMERO ZHOU Primary Care Physician Unava ilable Annamaria Greenberg Attending Clinician [phone] ANNAMARIA HENDERSON Attending Clinician Unavail able Juliana Masters MD Attending Clinician [phone] GC_GCBZW_Kadiyala_S Attending Clinician Unavaila YULIYA Diallo Attending Clinician Unavailable Yuliya Coburn Attending Clinician [phone] Unknown, Attending Attending Clinician Unavailab le Doctor Unassigned, [place] Attending Clinician U navailable ÁNGEL_LARA Attending Clinician Unavailab CARMELINA Green Attending Clinician Unavailable Carmelina Black MD Attending Clinician [phone] CRISTY MICHELLE Attending Clinician Unavailable JULAINA MASTERS Attending Clinician UnavailBaldomero Crawford MD Attending Clinician [phone] Kevin Gallego MD Attending Clinician [phone] Nurse, Pcp Immunization Attending Clinician Unav ailable KEVIN GALLEGO Attending Clinician Unavailable Radiology Attending Clinician Unavailable Lab, Adc Fam Pob I Attending Clinician Unavailab le RADIOLOGY Attending Clinician Unavailable Only, Pcp Test Attending Clinician Unavailable Rafita Talbot MD Attending Clinician [phone] RAFITA TALBOT Attending Clinician Unavailable LUCINDA ODONNELL Attending Clinician Unavail able CLAUDIA MORGAN Attending Clinician Unavailable BALDOMERO ZHOU Attending Clinician Unavailchelsy Quintero MD, Zac Oates Attending Clinician [phone] ZAC QUINTERO Attending Clinician Unavailable 2, Adc Lab Attending Clinician Unavailable MAR TRAORE Attending Clinician Unavailable JANEEN VANN Attending Clinician Unavailab Helen Franco RN Attending Clinician Unavaila Jan Banks MD Attending Clinician [phone] Nurse, Ch[facility] Attending Michele dugan Unavailable UNKNOWN, ATTENDING Attending Clinician Unavailab Gabi Zavala RN Attending Clinician Unavaila Cammie Carranza Attending Clinician [phone] CAMMIE MORRISSEY Attending Clinician Unavailab Claudia Navarro PA-C Attending Clinician [phone] 1, Adc Lab Attending Clinician Unavailable SHWETA_GCBZW_Aracelis_Keiko Admitting Clinician Unavaila marisa ASHBY Admitting Clinician Unavailab adolfo Payers Payer Name Policy Type Policy Number Effective Date Expirati on Date Source [employer] II [id number] 2020 00:00:00 [facility] [employer] [id number] 2019 00:00:00 Problems Condition Name Condition Details Condition Category Status Onset Date Resolution Date Last Treatment Date Treating Clinician Comments Source Bilateral hand pain Bilateral hand pain Disease Active 11-06 00:00: 00 [facility] Low back pain, unspecifie d back pain laterality , unspecifie d chronicity , unspecifie d whether sciatica present Low back pain, unspecifie d back pain laterality , unspecifie d chronicity , unspecifie d whether sciatica present Disease Active 11-06 00:00: 00 [facility] 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 11-06 00:00: 00 [facility] 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) on Papanicola ou smear of cervix 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) on Papanicola ou smear of cervix Disease Active 02-07 00:00: 00 [facility] 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 2014-09 00:00: 00 [facility] Decreased libido Decreased libido Disease Active 2014-09 00:00: 00 [facility] Depression Depression Disease Active 2014-09 00:00: 00 [facility] Hypoactive sexual desire disorder Hypoactive sexual desire disorder Disease Active 2014-09 00:00: 00 [facility] 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 A1C elevated; not Dx as Diabetic [facility] Allergies, Adverse Reactions, Alerts Allergy Name Allergy Type Status Severity Reaction(s) Onset Date Inactive Date Treating Clinician Comments Source NO KNOWN ALLERGIE S Drug Class Active [facility] Family History Family Member Diagnosis Comments Start Date Stop Date Sourc e Maternal grandmother Cancer [facility] Natural [facility] Colon [facility] member Heart [facility] member Hy[facility] member Mental retardation [facility] Family member [facility]rological [facility] member Other - see comments [facility] Family [facility]varian [facility]ine [facility] Natural father Ar[facility]ritis [facility] Natural father High cholesterol [facility] Social History Social Habit Start Date Stop Date Quantity Comments Source Sexual orientation [facility] Exposure to SARS-CoV-2 (event) 2022-12-04 00:00:00 2022-12-14 17:40:00 Not sure [facility] Alcoholic beverage intake 2022-12-14 00:00:00 2022-12-14 00:00:00 .29 /d [facility] Alcohol intake 2022-12-14 00:00:00 2022-12-14 00:00:00 .29 /d [facility] Tobacco use and exposure 2022-12-14 00:00:00 2022-12-14 00:00:00 Smokeless tobacco non-user [facility] History of Social function 2021-06-22 00:00:00 2021-06-22 00:00:00 [facility] Sex assigned at 1975 00:00:00 1975 00:00:00 [facility] Smoking Status Start Date Stop Date Source Never smoked tobacco [facility] Medications Ordered Medication Name Filled Medication Name Start Date Stop Date Current Medication? Ordering Clinician Indication Dosage Frequency Signature (SIG) Comments Components Source azithromyci n 250 mg tablet 2022-09 00:00: 00 Yes [id number] 500mg Take 2 tablets by mouth in the morning. [facility] amoxicillin -clavulanat e (AUGMENTIN) 875-125 mg per tablet 12-14 00:00: 00 12-25 04:59 :00 No [id number] 1{tbl} Take 1 tablet by mouth in the morning and 1 tablet in the evening. Do all this for 10 days. [facility] albuterol 90 mcg/actuati on inhaler 12-14 00:00: 00 12-25 04:59 :00 No [id number] 2{puff} Inhale 2 Puffs every 6 (six) hours as needed for Wheezing for up to 10 days. [facility] predniSONE 20 mg tablet 12-14 00:00: 00 12-20 04:59 :00 No [id number] 40mg Take 2 tablets by mouth in the morning for 5 days. [facility] codeine-gua ifenesin 10-100 mg/5 mL oral solution 12-14 00:00: 00 12-20 04:59 :00 No 10mL Take 10 mL by mouth every 6 (six) hours as needed for Cough for up to 5 days. Indication s: cough [facility] acetaminoph en (TYLENOL) tablet 1,000 mg 12-22 10:00: 00 12-22 10:06 :00 No 1000mg 1,000 mg, Oral, ONCE, 1 dose, On Sat12/22/21 at 0515, SIOBHAN [facility] oseltamivir (TAMIFLU) 75 mg capsule 12-22 00:00: 00 Yes [id number] 75mg Take 1 capsule by mouth 2 (two) times daily. [facility] ibuprofen 800 mg tablet 12-22 00:00: 00 Yes [id number] 800mg Take 1 tablet by mouth every 8 (eight) hours as needed for Pain (scale 4-6). [facility] benzonatate 100 mg capsule 12-22 00:00: 00 Yes [id number] 100mg Take 1 capsule by mouth 3 (three) times daily as needed for Cough. [facility] ondansetron 4 mg disintegrat ing tablet 12-22 00:00: 00 Yes [id number] 4mg Take 1 tablet by mouth every 4 (four) hours as needed for Nausea and Vomiting (N/V). [facility] traZODone 100 mg tablet 11-06 00:00: 00 Yes [id number] 100mg Take 1 tablet by mouth at bedtime. [facility] venlafaxine XR 150 mg 24 hr capsule 11-06 00:00: 00 Yes [id number] 150mg Take 1 capsule by mouth daily with breakfast. [facility] traZODone 100 mg tablet 2- 00:00: 00 11-06 00:00 :00 No [id number] 100mg Take 1 tablet by mouth at bedtime. [facility] venlafaxine XR 75 mg 24 hr capsule 2 00:00: 00 11-06 00:00 :00 No [id number] 150mg Take 2 capsules by mouth daily with breakfast. [facility] busPIRone 10 mg tablet 2020-09 0 00:00: 00 Yes [id number] 10mg Take 1 tablet by mouth 2 (two) times daily. [facility] traZODone 100 mg tablet 2020-09 00:00: 00 10-19 00:00 :00 No [id number] 100mg Take 1 tablet by mouth at bedtime. [facility] venlafaxine XR 75 mg 24 hr capsule 2020-09 00:00: 00 10-19 00:00 :00 No [id number] 150mg Take 2 capsules by mouth daily with breakfast. [facility] methocarbam oL 500 mg tablet 11-06 00:00: 00 Yes [id number] 500mg Take 1 tablet by mouth 4 (four) times daily as needed (muscle pain or spasm). [facility] meloxicam 15 mg tablet 11-06 00:00: 00 Yes [id number] 15mg Take 1 tablet by mouth once daily as needed for Pain or Inflammati on. Take with food. [facility] TESTOSTERON E IM 11-04 15:19: 41 Yes by Intramuscu lar route. [facility] progesteron e 100 mg capsule 11-04 14:51: 42 Yes 100mg Take 100 mg by mouth daily. [facility] LACTOBACILL US ACIDOPHILUS (PROBIOTIC ORAL) 9 15:43: 29 Yes Take by mouth. [facility] LACTOBACILL US ACIDOPHILUS (PROBIOTIC ORAL) 03-27 09:32: 35 Yes Take by mouth. [facility] Immunizations Ordered Immunization Name Filled Immunization Name Date Status Comments Source SARS-COV-2 COVID-19 PFIZER VACCINE 2020-12-06 00:00:00 Completed [facility] SARS-COV-2 COVID-19 PFIZER VACCINE 2020-12-06 00:00:00 Completed [facility] SARS-COV-2 COVID-19 PFIZER VACCINE 2020-12-06 00:00:00 Completed [facility] SARS-COV-2 COVID-19 PFIZER VACCINE 2020-12-06 00:00:00 Completed [facility] SARS-COV-2 COVID-19 PFIZER VACCINE 2020-11-15 00:00:00 Completed [facility] SARS-COV-2 COVID-19 PFIZER VACCINE 2020-11-15 00:00:00 Completed [facility] SARS-COV-2 COVID-19 PFIZER VACCINE 2020-11-15 00:00:00 Completed [facility] SARS-COV-2 COVID-19 PFIZER VACCINE 2020-11-15 00:00:00 Completed [facility] Influenza Virus Vaccine 2020-06-16 00:00:00 Completed [facility] Influenza Virus Vaccine 2020-06-16 00:00:00 Completed [facility] Influenza Virus Vaccine 2020-06-16 00:00:00 Completed [facility] Influenza Virus Vaccine 2020-06-16 00:00:00 Completed [facility] TDAP 2016-02-08 00:00:00 Completed [facility] TDAP 2016-02-08 00:00:00 Completed [facility] TDAP 2016-02-08 00:00:00 Completed [facility] TDAP 2016-02-08 00:00:00 Completed [facility] TDAP Unknown Completed [facility] TDAP Unknown Completed [facility] Influenza Virus Vaccine Unknown Completed [facility] SARS-COV-2 COVID-19 PFIZER VACCINE Unknown Completed [facility] SARS-COV-2 COVID-19 PFIZER VACCINE Unknown Completed [facility] TDAP Unknown Completed [facility] Influenza Virus Vaccine Unknown Completed [facility] SARS-COV-2 COVID-19 PFIZER VACCINE Unknown Completed [facility] SARS-COV-2 COVID-19 PFIZER VACCINE Unknown Completed [facility] Vital Signs Vital Name Observation Time Observation Value Comments S lidia Systolic blood pressure 2022-12-14 22:48:00 133 mm[Hg] [facility] Diastolic blood pressure 2022-12-14 22:48:00 83 mm[Hg] [facility] Heart rate 2022-12-14 22:47:00 71 /min [facility] Body temperature 2022-12-14 22:47:00 36.89 Amelie [facility] Respiratory rate 2022-12-14 22:47:00 18 /min [facility] Body height 2022-12-14 22:47:00 172.7 cm [facility] Body weight 2022-12-14 22:47:00 87.363 kg [facility] BMI 2022-12-14 22:47:00 29.28 kg/m2 [facility] Oxygen saturation in Arterial blood by Pulse oximetry 2022-12-14 22:47:00 99 /min [facility] Systolic blood pressure 2021-12-22 11:08:00 100 mm[Hg] [facility] Diastolic blood pressure 2021-12-22 11:08:00 63 mm[Hg] [facility] Heart rate 2021-12-22 11:08:00 78 /min [facility] Body temperature 2021-12-22 11:08:00 38.11 Amelie [facility] Respiratory rate 2021-12-22 11:08:00 20 /min [facility] Oxygen saturation in Arterial blood by Pulse oximetry 2021-12-22 11:08:00 98 /min [facility] Body height 2021-12-22 09:50:00 172.7 cm [facility] Body weight 2021-12-22 09:50:00 88.905 kg [facility] BMI 2021-12-22 09:50:00 29.80 kg/m2 [facility] Systolic blood pressure 2021-06-22 17:13:00 119 mm[Hg] [facility] Diastolic blood pressure 2021-06-22 17:13:00 82 mm[Hg] [facility] Heart rate 2021-06-22 17:13:00 64 /min [facility] Respiratory rate 2021-06-22 17:13:00 18 /min [facility] Body height 2021-06-22 17:13:00 172.7 cm [facility] Body weight 2021-06-22 17:13:00 89.812 kg [facility] BMI 2021-06-22 17:13:00 30.11 kg/m2 [facility] Body temperature 2020-11-04 20:48:00 36.22 Amelie [facility] Oxygen saturation in Arterial blood by Pulse oximetry 2020-04-21 15:52:00 97 /min [place] [facility] Procedures Procedure Date / Time Performed Performing Clinicia n Source QUANTIFERON-TB ASSAY 2024-01-22 16:11:00 Laura Anthony [facility] CONSENT/REFUSAL FOR DIAGNOSIS AND TREATMENT 2022-12-14 22:40:35 Doctor Unassigned, [place] [facility] RAPID STREP SCREEN FOR GROUP A 2021-12-22 10:09:00 Carmelina Black [facility] RAPID INFLUENZA A/B 2021-12-22 10:09:00 Filiberto Black [facility] COVID-19 (ID NOW RAPID TESTING) 2021-12-22 10:09:00 Carmelina Black [facility] NOTICE OF PRIVACY PRACTICES 2021-12-22 09:44:56 Doctor Unassigned, [place] [facility] CONSENT/REFUSAL FOR DIAGNOSIS AND TREATMENT 2021-12-22 09:43:53 Doctor Unassigned, [place] [facility] Encounters Start Date/Time End Date/Time Encounter Type Admission Type Attending Clinicians Care Facility Care Department Encounter ID Source 2024-01-22 10:32:00 2024-01-22 23:59:00 Hospital Encounter Annamaria Henderson [facility] 1.2.840.114 350.1.13.10 4.2.7.2.686 [id number] [facility] 2024-01-22 00:00:00 2024-01-22 23:59:00 Outpatient R ANNAMARIA HENDERSON [facility] EHA [id number] [facility] 2023-09-18 11:20:00 2023-09-18 11:20:00 Outpatient R [facility] [id number] [facility] 2023-07-24 00:00:00 2023-07-24 00:00:00 Telephone Juliana Masters [facility] 1..840.114 350.1.13.10 4.2.7.2.686 [id number] [facility] 2023-07-14 00:00:00 2023-07-14 00:00:00 Outpatient GC_GCBZW_Ka diyala_S PRIV PRIV [id number] [facility] 2022-12-14 17:40:00 2022-12-14 18:05:34 Outpatient R YULIYA MULTANI [facility] [id number] [facility] 2022-12-14 17:40:00 2022-12-14 18:05:34 Urgent Care Yuliya Multani Unknown, Attending [facility] 1..840.114 350.1.13.10 4.2.7.2.686 [id number] [facility] 2022-12-14 00:00:00 2022-12-14 00:00:00 Orders Only Doctor Unassigned, [place] [facility] 1..840.114 350.1.13.10 4.2.7.2.686 [id number] [facility] 2022-04-12 00:00:00 2022-04-12 00:00:00 Outpatient ANTELMO CRAIG [id number] Raphael tracey [facility] Program 2021-12-22 04:54:00 2021-12-22 06:11:00 Emergency X CARMELINA BLACK [facility] ERT [id number] [facility] 2021-12-22 04:54:00 2021-12-22 06:11:00 Emergency Carmelina Black [facility] 1.2.840.114 350.1.13.10 4.2.7.2.686 [id number] [facility] 2021-12-21 12:45:00 2021-12-21 12:45:00 Outpatient CRISTY MORALES [facility] [id number] [facility] 2021-06-22 12:45:00 2021-06-22 12:45:00 Outpatient CRISTY MORALES [facility] [id number] [facility] 2021-06-22 00:00:00 2021-06-22 00:00:00 Orders Only Doctor Unassigned, [place] 1.2.840.1 [id number] 3.104.2.7 .[id number] .[id number] [facility] 2021-06-22 00:00:00 2021-06-22 00:00:00 Travel 1.2.840.1 [id number] 3.104.2.7 .[id number] .8 1.2.840.114 350.1.13.10 4.2.7.3.698 [id number] [facility] 2021-04-20 14:15:00 2021-04-20 14:15:00 Outpatient CRISTY OMRALES [facility] [id number] [facility] 2021-01-31 14:40:00 2021-01-31 14:40:00 Outpatient JULIANA SALAZAR [facility] [id number] [facility] 2021-01-11 00:00:00 2021-01-11 00:00:00 Telephone Baldomero Zhou 1.2.840.1 [id number] 3.104.2.7 .3.091893 .[id number] [facility] 2020-12-06 13:49:39 2020-12-06 13:59:39 Imm/Inj Visit Kevin Gallego Nurse, Pcp Immunizatio n 1..840.1 [id number] 3.104.2.7 .3.898075 .8 [id number] [facility] 2020-12-06 13:40:00 2020-12-06 13:40:00 Outpatient R KEVIN GALLEGO [facility] [id number] [facility] 2020-11-15 13:40:00 2020-11-15 13:40:00 Outpatient R KEVIN GALLEGO [facility] [id number] [facility] 2020-11-04 16:14:16 2020-11-04 23:59:00 Hospital Encounter Baldomero Zhou [facility] 1.840.114 350.1.13.10 4.2.7.2.686 [id number] [facility] 2020-11-04 16:00:00 2020-11-04 16:13:00 Hospital Encounter Baldomero Zhou [facility] 1.2.840.114 350.1.13.10 4.2.7.2.686 [id number] [facility] 2020-11-04 10:40:00 2020-11-04 15:59:00 Hospital Encounter Radiology [facility] 1.2.840.114 350.1.13.10 4.2.7.2.686 [id number] [facility] 2020-11-04 15:30:12 2020-11-04 15:50:12 Shelver Visit Lab, Adc F[facility]ob [facility] 1.2840.114 350.1.13.10 4.2.7.2.686 [id number] [facility] 2020-11-04 13:50:43 2020-11-04 15:30:24 [facility] 1.114 350.1.13.10 4.2.7.2.686 [id number] [facility] 2020-11-04 00:00:00 2020-11-04 00:00:00 Outpatient R RADIOLOGY [facility] [id number] [facility] 2020-10-14 14:50:00 2020-10-14 14:50:00 Outpatient R KEVIN GALLEGO [facility] [id number] [facility] 2020-09-29 15:00:59 2020-09-29 15:15:59 Laboratory Only Only, Pcp Test Rafita Talbot [facility] 1.840.114 350.1.13.10 4.2.7.2.686 [id number] [facility] 2020-09-29 15:00:00 2020-09-29 15:00:00 Outpatient R RAFITA TALBOT [facility] [id number] [facility] 2020-09-07 13:00:00 2020-09-07 13:00:00 Outpatient LUCINDA DUMONT [facility] [id number] [facility] 2020-06-03 13:30:00 2020-06-03 13:30:00 Outpatient R CLAUDIA MORGAN [facility] [id number] [facility] 2020-05-31 14:30:00 2020-05-31 14:30:00 Outpatient R BALDOMERO ZHOU [facility] [id number] [facility] 2020-05-09 00:00:00 2020-05-09 00:00:00 Patient Secure Msg Doctor Unassigned, [place] [facility] 1..114 350.1.13.10 4.2.7.2.686 [id number] [facility] 2020-05-02 09:55:51 2020-05-02 17:09:32 Office Visit Zac Quintero 1.2.840.1 [id number] 3.104.2.7 .3.412685 .8 [id number] [facility] 2020-05-02 10:00:00 2020-05-02 10:00:00 Outpatient R ZAC QUINTERO [facility] [id number] [facility] 2020-05-02 00:00:00 2020-05-02 00:00:00 Travel 1.2.840.1 [id number] 3.104.2.7 .[id number] .8 1.2.840.114 350.1.13.10 4.2.7.3.698 [id number] [facility] 2020-04-21 10:42:17 2020-04-23 14:57:44 Office Visit Baldomero Zhou 1.2.840.1 [id number] 3.104.2.7 .[id number] .[id number] [facility] 2020-04-21 11:38:09 2020-04-21 11:53:09 Shelver Visit Baldomero Zhou 2, Adc Lab 1.2.840.1 [id number] 3.104.2.7 .[id number] .[id number] [facility] 2020-04-21 10:30:00 2020-04-21 10:30:00 Outpatient R BALDOMERO ZHOU [facility] [id number] [facility] 2020-04-21 10:30:00 2020-04-21 10:30:00 Outpatient R BALDOMERO ZHOU [facility] [id number] [facility] 2020-04-21 00:00:00 2020-04-21 00:00:00 Orders Only Doctor Unassigned, [place] 1.2.840.1 [id number] 3.104.2.7 .[id number] .[id number] [facility] 2020-04-21 00:00:00 2020-04-21 00:00:00 Travel 1.2.840.1 [id number] 3.104.2.7 .[id number] .8 1.2.840.114 350.1.13.10 4.2.7.3.698 [id number] [facility] 2020-04-21 00:00:00 2020-04-21 00:00:00 Travel 1.2.840.1 [id number] 3.104.2.7 .[id number] .8 1.2.840.114 350.1.13.10 4.2.7.3.698 [id number] [facility] 2020-03-28 08:30:00 2020-03-28 08:30:00 Outpatient R CLAUDIA MORGAN [facility] [id number] [facility] 2020-02-01 00:00:00 2020-02-01 00:00:00 Travel 1.2.840.1 [id number] 3.104.2.7 .[id number] .8 1.2.840.114 350.1.13.10 4.2.7.3.698 [id number] [facility] 2020-01-15 12:45:00 2020-01-15 12:45:00 Outpatient R MAR TRAORE [facility] [id number] [facility] 2020-01-15 12:45:00 2020-01-15 12:45:00 Outpatient R MAR TRAORE [facility] [id number] [facility] 2020-01-13 16:00:00 2020-01-13 16:00:00 Outpatient R JANEEN VANN [facility] [id number] [facility] 2020-01-04 00:00:00 2020-01-04 00:00:00 Travel 1.2.840.1 [id number] 3.104.2.7 .[id number] .8 1.2.840.114 350.1.13.10 4.2.7.3.698 [id number] [facility] 2020-01-02 00:00:00 2020-01-02 00:00:00 Telephone Helen Flores 1.2.840.1 [id number] 3.104.2.7 .[id number] .8 [id number] [facility] 2019-12-31 16:06:56 2019-12-31 18:01:39 Nurse Visit Unknown, Attending Jan Bowser Nurse, [facility] 1.2.840.1 [id number] 3.104.2.7 .[id number] .8 [id number] [facility] 2019-12-31 16:05:00 2019-12-31 16:05:00 Outpatient R UNKNOWN, ATTENDING [facility] [id number] [facility] 2019-12-31 00:00:00 2019-12-31 00:00:00 Telephone Gabi Crane 1.2.840.1 [id number] 3.104.2.7 .3.486594 .8 [id number] [facility] 2019-11-25 14:51:00 2019-11-25 23:59:00 Hospital Encounter Cammie Morrissey 1.2.840.1 [id number] 3.104.2.7 .[id number] .8 [id number] [facility] 2019-11-25 00:00:00 2019-11-25 00:00:00 Outpatient R [facility] [id number] [facility] 2019-05-12 00:00:00 2019-05-12 00:00:00 Telephone Claudia Morgan 1.2.840.1 [id number] 3.104.2.7 .3.476516 .8 [id number] [facility] 2019-05-11 00:00:00 2019-05-11 00:00:00 Telephone Claudia Morgan 1.2.840.1 [id number] 3.104.2.7 .3.263970 .8 [id number] [facility] 2019-04-24 07:54:40 2019-04-24 08:09:40 Shelver Visit Claudia Morgan 1, [facility] 1.2.840.1 [id number] 3.104.2.7 .3.093675 .8 [id number] [facility] 2019-04-24 00:00:00 2019-04-24 00:00:00 Orders Only Doctor Unassigned, [place] 1.2.840.1 [id number] 3.104.2.7 .3.976914 .8 [id number] [facility] 2019-04-13 15:37:32 2019-04-13 23:59:00 Hospital Encounter Claudia Morgan 1.2.840.1 [id number] 3.104.2.7 .3.936551 .8 [id number] [facility] 2019-04-13 00:00:00 2019-04-13 00:00:00 Orders Only Doctor Unassigned, [place] 1.2.840.1 [id number] 3.104.2.7 .3.523454 .8 [id number] [facility] 2019-03-30 08:00:00 2019-03-30 23:59:00 Hospital Encounter Claudia Morgan 1.2.840.1 [id number] 3.104.2.7 .3.910530 .8 [id number] [facility] 2019-03-30 00:00:00 2019-03-30 00:00:00 Case Management Claudia Morgan 1.2.840.1 69219.1.1 3.104.2.7 .3.249901 .8 [id number] [facility] 2019-03-27 08:47:59 2019-03-27 09:47:17 Office Visit Brandon Claudia 1.2.840.1 [id number] 3.104.2.7 .3.005960 .8 [id number] [facility] 2019-03-27 00:00:00 2019-03-27 00:00:00 Orders Only Doctor Unassigned, [place] 1.2.840.1 24127.1.1 3.104.2.7 .3.298753 .8 [id number] [facility]
--- NOTE | 2024-04-25 22:00 | RAD REPORT ---
EXAM DESCRIPTION: Dari Single View04/25/2024 9:51 pm CLINICAL HISTORY: Numbness/code stroke COMPARISON: 2022 FINDINGS: The lungs appear clear of acute infiltrate. The heart is normal size IMPRESSION: No acute abnormalities displayed
--- NOTE | 2024-04-25 22:00 | RAD REPORT ---
EXAM DESCRIPTION: CT - Ct Stroke Brain Wo Cont - 04/25/2024 9:43 pm CLINICAL HISTORY: Numbness COMPARISON: none TECHNIQUE: Computed axial tomography of the head was obtained. All CT scans are performed using dose optimization technique as appropriate and may include automated exposure control or mA/KV adjustment according to patient size. FINDINGS: An intracranial bleed is not seen . The ventricles are normal in caliber. No extra-axial fluid collection is noted. No significant hypodensity within the brain is noted. Fluid within the sinuses/ mastoids is not seen. IMPRESSION: No acute intracranial abnormality is seen. If patient's symptoms persist MRI of the bra in would be recommended Barbara of the emergency room was notified at 9:55 p.m. April 25, 2024
[2024-04-25 22:15] LABS: Absolute Eosinophils 0.2 K/uL (0-0.5); Absolute Lymphocytes (CBC) 1.8 K/uL (0.7-4.9); Absolute Monocytes 0.5 K/uL (0.1-1.3); Basophils % 0.3 % (0-1.3); Eosinophils % 2.8 % (0-4.4); Hematocrit 37.8 % (36.0-45.0); Hemoglobin 12.5 g/dL (12.0-15.0); Lymphocytes % 28.2 % (15.3-44.8); MCH 27.4 pg (27.0-35.0); MCHC 33.1 g/dL (32.0-36.0); MCV 82.7 fL (80-100); MPV 8.4 fL (7.6-11.3); Monocytes % 7.4 % (3.3-12.3); Neutrophils % 61.3 % (41.7-73.7); Nucleated Red Blood Cells % 0.3 % (0-0); Platelets 284 thou/uL (152-406); RBC Red Blood Cell Count 4.57 M/uL (3.86-4.86); Red Cell Distribution Width 13.2 % (12.1-15.2)
[2024-04-25 22:18] LABS: PT Prothrombin Time 11.5 SECONDS (9.4-12.5); PTT, Activated Partial Thromb 30.1 SECONDS (24.3-36.9); Protime INR 1.03
[2024-04-25 22:23] LABS: Anion Gap 7.7 mEq/L (5.0-15.0); BUN Blood Urea Nitrogen 19 mg/dL (7-18); Bicarbonate 26 mEq/L (21-32); Glomerular Filtration Rate 66 ml/min (=/>90); Glucose Level 101 mg/dL (74-106); Potassium 3.7 mEq/L (3.5-5.1); Sodium Level 138 mEq/L (136-145)
[2024-04-25 22:24] LABS: Troponin High Sensitivity < 3.0 pg/mL (<58.9)
--- NOTE | 2024-04-25 22:38 | EDPHYS ---
Physician Documentation [facility] Name: Genna Doss Age: 49 yrs Sex: Female : 1975 Arrival Date: 04/25/2024 Time: 21:18 Bed 2 Private MD: ED Physician Marcos Adkins HPI: 04/25 22:28 This 49 yrs old Black Female presents to ER via Ambulatory with complaints of Facial bo1 Droop, Numbness Of Face. 22:28 The patient presents to the emergency department with Right facial droop today. Onset: bo1 The symptoms/episode began/occurred gradually, today, Pt got off work at 1900 hrs and drove home w/o problems. Context: occurred while the patient was working. 22:29 Associated signs and symptoms: The patient has no apparent associated signs or bo1 symptoms, Pertinent negatives: headache, loss of vision, weakness. Current symptoms: Weakness to the right face, less blinking of the right eyelid. No recent illnesses. 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 - Infectious Disease History:: Denies. - Social history:: Smoking status: Patient denies any tobacco usage or history of. Patient/guardian denies using alcohol, street drugs. ROS: 22:30 Constitutional: Negative for fever, chills, and weight loss, bo1 22:30 Eyes: Negative for blurry vision, tearing, 22:30 Neck: Negative for pain with movement, pain at rest, acute changes, 22:30 Cardiovascular: Negative for chest pain, palpitations, 22:30 Respiratory: Negative for cough, shortness of breath, 22:30 MS/extremity: Negative for acute changes, paresthesias, Weakness, 22:30 Neuro: Positive for weakness, of the face and right jaw and mouth and right cheek and right eye, When pt tried to brush her teeth, she noticed a different feeling, Exam: 22:32 Constitutional: This is a well developed, well nourished patient who is awake, alert, bo1 and in no acute distress. 22:32 Constitutional: The patient appears alert, awake, comfortable, 22:32 Head/face: Noted is deformity, of the right eye, right cheek and right jaw and face and mouth, of the Weakness (droop), 22:32 Skin: no rash present. 22:32 Neuro: Voice, understanding is normal. A\T\O x 4, 22:35 ECG was reviewed by the Attending Physician. bo1 Vital Signs: 21:19 BP 153 / 92; Pulse 99; Resp 17; Temp 97.9; Pulse Ox 99% ; Weight 89.81 kg; Height 5 ft. bm8 8 in. ; Pain 0/10; 21:48 BP 119 / 80; Pulse 63; Resp 15; Temp 97.9; Pulse Ox 97% ; Pain 0/10; bm8 23:02 BP 125 / 83; Pulse 58; Resp 15; Temp 97.9; Pulse Ox 100% ; Pain 0/10; bm8 21:19 Body Mass Index 30.11 (89.81 kg, 172.72 cm) bm8 21:19 Pain Scale: Adult bm8 21:48 Pain Scale: Adult bm8 23:02 Pain Scale: Adult bm8 NIH Stroke Scale Scores: 21:48 NIHSS Score: 3 bm8 22:32 NIHSS Score: 2 bo1 [place] Coma Score: 21:48 Eye Response: spontaneous(4). Motor Response: obeys commands(6). Verbal Response: bm8 oriented(5). Total: 15. 23:02 Eye Response: spontaneous(4). Motor Response: obeys commands(6). Verbal Response: bm8 oriented(5). Total: 15. MDM: 21:22 Patient medically screened. bo1 22:34 Data reviewed: vital signs, lab test result(s), CBC, electrolytes, EKG, radiologic bo1 studies, CT scan, plain films. 22:36 Management of patient was discussed with the following: Pt and spouse here; plan and bo1 treatment agreed upon. 22:36 ED course: Pt has no worsening symptoms; isolated facial palsy (right). bo1 22:40 Special discussion: Stroke protocol initiated \T\ arrival. Isolated CN7 palsy noted on bo1 the right. Pt continues to have the same. TNK not indicated due to non embolic or thrombotic diagnosis. 04/25 21:22 Order name: Basic Metabolic Panel; Complete Time: 22:27 [facility] 04/25 21:22 Order name: CBC with Diff; Complete Time: 22:27 bo 04/25 21:22 Order name: High Sensitivity Troponin; Complete Time: 22:27 bo 04/25 21:22 Order name: Protime (+inr); Complete Time: 22:27 [facility] 04/25 21:22 Order name: Ptt, Activated; Complete Time: 22:27 [facility] 04/25 21:42 Order name: Glucose, Ancillary Testing; Complete Time: 21:59 EDMS 04/25 21:22 Order name: CT Stroke Brain w/o Contrast; Complete Time: 22:11 bo 04/25 21:22 Order name: Stroke CXR 1 View; Complete Time: 22:11 [facility] 04/25 21:22 Order name: EKG; Complete Time: : [facility] 04/25 21:22 Order name: Accucheck; Complete Time: 22: 04/25 21:22 Order name: Cardiac monitoring; Complete Time: 22: [facility] 04/25 21:22 Order name: EKG - Nurse/Tech; Complete Time: 22: [facility] 04/25 21:22 Order name: IV Saline Lock; Complete Time: 22: [facility] 04/25 21:22 Order name: Labs collected and sent; Complete Time: 22: [facility] 04/25 21:22 Order name: NPO; Complete Time: 22: [facility] 04/25 21:22 Order name: O2 Per Protocol; Complete Time: 22: 04/25 21:22 Order name: O2 Sat Monitoring; Complete Time: 22: [facility] 04/25 21:22 Order name: Stroke Swallow Screen; Complete Time: 22: bo EC:35 Rate is 64 beats/min. Rhythm is regular. QRS Wana is Normal. ID interval is normal. QRS bo1 interval is normal. QT interval is normal. No Q waves. T waves are Normal. No ST changes noted. Clinical impression: Normal ECG. Interpreted by me. Reviewed by me. 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 Diagnosis - Lezama's palsy bo1 Followup: bo1 - With: Arsh Arango MD - When: Upon discharge from the Emergency Department - Reason: Recheck today's complaints Discharge Instructions: - Discharge Summary Sheet bo1 - Lezama's Palsy, Adult bo1 Forms: - Medication Reconciliation Form bo1 - Antibiotic Education bo1 - Prescription Opioid Use bo1 - Patient Portal Instructions bo1 - Leadership Thank You Letter bo1 Prescriptions: - Acyclovir 800 mg Oral Tablet - take 1 tablet ORAL route 4 times per day for 5 days; 20 tablet; Refills: 0, bo1 Product Selection Permitted - Prednisone 20 mg Oral Tablet - take 2 tablets ORAL route once daily for 5 days; 10 tablet; Refills: 0, Product bo1 Selection Permitted NIH Stroke Scale - NIH Stroke Score Date: 04/25/2024 Time: 21:48 Total Score = 3 10. Dysarthria (speech clarity - read or repeat words) - 0(Normal) 11. Extinction and Inattention (visual/tactile/auditory/spatial/personal) - 0(No abnormality) 1a. Level of Consciousness (LOC) - 0(Alert) 1b. Level of Consciousness (LOC) (Month \T\ Age) - 0(Both) 1c. LOC Commands (Open \T\ Closes Eyes/Professor Of Nursing) - 0(Both) 2. Best Gaze (Lateral Gaze Paresis) - 0(Normal) 3. Visual Field Loss - 0(No visual loss) 4. Facial Palsy - 2(Partial paralysis) 5a. Left Arm: Motor (10-second hold) - 0(No drift) 5b. Right Arm: Motor (10-second hold) - 0(No drift) 6a. Left Leg: Motor (5-second hold - always test supine) - 0(No drift) 6b. Right Leg: Motor (5-second hold - always test supine) - 0(No drift) 7. Limb Ataxia (finger/nose \T\ heel/aldridge - test with eyes open) - 0(Absent) 8. Sensory Loss (pinprick arms/legs/face) - 1(Mild to moderate loss) 9. Best Language: Aphasia (description/naming/reading) - 0(No aphasia) Initials: bm8 NIH Stroke Scale - NIH Stroke Score Date: 04/25/2024 Time: 22:32 Total Score = 2 10. Dysarthria (speech clarity - read or repeat words) - 0(Normal) 11. Extinction and Inattention (visual/tactile/auditory/spatial/personal) - 0(No abnormality) 1a. Level of Consciousness (LOC) - 0(Alert) 1b. Level of Consciousness (LOC) (Month \T\ Age) - 0(Both) 1c. LOC Commands (Open \T\ Closes Eyes/Professor Of Nursing) - 0(Both) 2. Best Gaze (Lateral Gaze Paresis) - 0(Normal) 3. Visual Field Loss - 0(No visual loss) 4. Facial Palsy - 2(Partial paralysis) 5a. Left Arm: Motor (10-second hold) - 0(No drift) 5b. Right Arm: Motor (10-second hold) - 0(No drift) 6a. Left Leg: Motor (5-second hold - always test supine) - 0(No drift) 6b. Right Leg: Motor (5-second hold - always test supine) - 0(No drift) 7. Limb Ataxia (finger/nose \T\ heel/aldridge - test with eyes open) - 0(Absent) 8. Sensory Loss (pinprick arms/legs/face) - 0(Normal) 9. Best Language: Aphasia (description/naming/reading) - 0(No aphasia) Initials: bo1 Signatures: Dispatcher [employer] EDMS Marcos Adkins MD MD bo1 Pramod Benito, RN RN bm8 Corrections: (The following items were deleted from the chart) 21:23 21:23 BASIC METABOLIC PANEL+C.LAB.BRZ ordered. EDMS EDMS 21:23 21:23 CBC+H.LAB.BRZ ordered. EDMS EDMS 21:23 21:23 Troponin High Sensitivity+C.LAB.BRZ ordered. EDMS EDMS 21:23 21:23 PROTIME (+INR)+COAG.LAB.BRZ ordered. EDMS EDMS 21:23 21:23 PTT, ACTIVATED+COAG.LAB.BRZ ordered. EDMS EDMS
--- NOTE | 2024-04-25 22:38 | ER ---
Nurse's Notes [facility] Name: Genna Doss Age: 49 yrs Sex: Female : 1975 Arrival Date: 04/25/2024 Time: 21:18 Bed 2 Private MD: Diagnosis: Lezama's palsy Presentation: 04/25 21:19 Chief complaint: Patient states: I had a sudden numbness in my face and hen part of its bm8 started drooping. I am also having trouble blinking on the right side. it started about 1999. Coronavirus screen: At this time, the client does not indicate any symptoms associated with coronavirus-19. Ebola Screen: Patient negative for fever greater than or equal to 101.5 degrees Fahrenheit, and additional compatible Ebola Virus Disease symptoms Patient denies exposure to infectious person. Patient denies travel to an Ebola-affected area in the 21 days before illness onset. No symptoms or risks identified at this time. 21:19 Method Of Arrival: Ambulatory bm8 21:19 An acute neurological deficit is present. The patients blood glucose was checked before bm8 arriving to the hospital and was found to be normal. Initial Sepsis Screen: Does the patient meet any 2 criteria? No. Patient's initial sepsis screen is negative. Does the patient have a suspected source of infection? No. Patient's initial sepsis screen is negative. Risk Assessment: Do you want to hurt yourself or someone else? Patient reports no desire to harm self or others. Onset of symptoms was April 25, 2024 at 20:00. 21:19 Acuity: MEE 2 bm8 Triage Assessment: 21:19 The onset of the patients symptoms was April 25, 2024 at 20:00. bm8 21:19 General: Appears in no apparent distress. comfortable, Behavior is calm, cooperative, bm8 appropriate for age. Pain: Denies pain. EENT: No deficits noted. No signs and/or symptoms were reported regarding the EENT system. Neuro: Level of Consciousness is awake, alert, obeys commands, Oriented to person, place, time, situation, Appropriate for age Branding Specialist are equal bilaterally Moves all extremities. Full function Gait is steady, Speech is normal, Facial droop on right, Pupils are PERRLA, Pupil Size: 3mm Numbness in right eye, right cheek, mouth and right jaw Reports. Cardiovascular: Heart tones S1 S2 present Capillary refill < 3 seconds Patient's skin is warm and dry. Respiratory: No deficits noted. Airway is patent Trachea midline Respiratory effort is even, unlabored, Respiratory pattern is regular, symmetrical, Breath sounds are clear bilaterally. GI: No signs and/or symptoms were reported involving the gastrointestinal system. : No signs and/or symptoms were reported regarding the genitourinary system. Derm: No signs and/or symptoms reported regarding the dermatologic system. Musculoskeletal: No signs and/or symptoms reported regarding the musculoskeletal system. 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 bm8 Stroke Activation: Symptom onset < 3 hours Physician: ED Attending; Name: ; Notified At: 21:19; Arrived At: 21:20 Physician: Mid-Level Provider; Name: ; Notified At: 21:19; Arrived At: Physician: [not used]; Name: ; Notified At: ; Arrived At: Physician: [not used]; Name: ; Notified At: ; Arrived At: Physician: [not used]; Name: ; Notified At: ; Arrived At: Historical: - Allergies: 21:41 No Known Allergies; bm8 - Home Meds: 21:41 Effexor XR 75 mg Oral cp24 1 cap nightly [Active]; estradiol Oral [Active]; Probiotic bm8 Oral [Active]; trazodone 100 mg Oral tab nightly [Active]; - PMHx: 21:41 HLD; bm8 - PSHx: 21:41 breast reduction; Cholecystectomy; bm8 - Immunization history:: Adult Immunizations unknown. - Infectious Disease History:: Denies. - Social history:: Smoking status: Patient denies any tobacco usage or history of. Patient/guardian denies using alcohol, street drugs. Screenin:[address] [facility] ED Fall Risk Assessment (Adult) History of falling in the last 3 months, bm8 including since admission No falls in past 3 months (0 pts) Confusion or Disorientation No (0 pts) Intoxicated or Sedated No (0 pts) Impaired Gait No (0 pts) Mobility Assist Device Used No (0 pt) Altered Elimination No (0 pt) Score/Fall Risk Level 0 - 2 = Low Risk Oriented to surroundings, Maintained a safe environment, Educated pt \T\ family on fall prevention, incl call for assistance when getting out of bed, Assessed \T\ reinforced patient's understanding of fall precautions, Hourly rounding (assess needs \T\ fall precautionary measures) done, Used ambulatory aids as needed (educated on \T\ assisted with), Used gait belt as appropriate. 21:58 Abuse screen: Denies threats or abuse. Nutritional screening: No deficits noted. bm8 Tuberculosis screening: No symptoms or risk factors identified. Assessment: 21:48 VAN Scoring: Arm Drift: Patients demonstrates NO arm weakness. Patient is VAN Negative. bm8 Visual Disturbance: No visual disturbance noted. Aphasia: No aphasia noted. Neglect: No neglect noted. [place] Swallow Protocol Exclusion Criteria: Unable to remain alert for testing: No NPO for medical/surgical reason by provider order No Tracheostomy tube present No No thin liquids due to preexisting dysphagia/baseline modified diet thickened liquids No Exclusion Criteria Result: Proceed Brief Cognitive Screen What is your name? Normal, Where are you right now? Normal, What year is it? Normal. Oral Mechanism Examination Facial Symmetry: Normal, Motion: Normal, Lip Closure: Normal, Oral Mechanism Result: Normal. 3 oz Water Swallow Challenge: Pt able to drink all water without stopping, coughing, choking or throat clearing: Result: PASS MD Notified: Marcos Adkins MD. TNKase (Tenecteplase) Screening: Indications:. Reassessment: see triage assessment. 23:02 Reassessment: Patient appears in no apparent distress at this time. No changes from bm8 previously documented assessment. Patient and/or family updated on plan of care and expected duration. Pain level reassessed. Patient is alert, oriented x 3, equal unlabored respirations, skin warm/dry/pink. Patient denies pain at this time. Vital Signs: 21:19 BP 153 / 92; Pulse 99; Resp 17; Temp 97.9; Pulse Ox 99% ; Weight 89.81 kg; Height 5 ft. bm8 8 in. ; Pain 0/10; 21:48 BP 119 / 80; Pulse 63; Resp 15; Temp 97.9; Pulse Ox 97% ; Pain 0/10; bm8 23:02 BP 125 / 83; Pulse 58; Resp 15; Temp 97.9; Pulse Ox 100% ; Pain 0/10; bm8 21:19 Body Mass Index 30.11 (89.81 kg, 172.72 cm) bm8 21:19 Pain Scale: Adult bm8 21:48 Pain Scale: Adult bm8 23:02 Pain Scale: Adult bm8 [place] Coma Score: 21:48 Eye Response: spontaneous(4). Motor Response: obeys commands(6). Verbal Response: bm8 oriented(5). Total: 15. 23:02 Eye Response: spontaneous(4). Motor Response: obeys commands(6). Verbal Response: bm8 oriented(5). Total: 15. NIH Stroke Scale Scores: 21:48 NIHSS Score: 3 bm8 22:32 NIHSS Score: 2 bo1 ED Course: 21:18 Patient arrived in ED. [email or web address] 21:19 Arm band placed on right wrist. Patient's private physician notified. bm8 21:21 Marcos Adkins MD is Attending Physician. bo1 21:30 Missed attempt(s): 20 gauge in left antecubital area. Bleeding controlled, band aid bm8 applied, catheter tip intact. 21:37 Pramod Benito, RN is Primary Nurse. bm8 21:41 Triage completed. bm8 21:45 CT Stroke Brain w/o Contrast In Process Unspecified. EDMS 21:48 Patient has correct armband on for positive identification. Bed in low position. Call bm8 light in reach. Side rails up X2. Adult w/ patient. Client placed on continuous cardiac and pulse oximetry monitoring. NIBP monitoring applied. monitoring coordinator on. Pulse ox on. NIBP on. Door closed. Noise minimized. Warm blanket given. Verbal reassurance given. Head of bed elevated. 21:48 No provider procedures requiring assistance completed. Initial lab(s) drawn, by ct, bm8 sent to lab. Inserted saline lock: 22 gauge in left wrist, using aseptic technique. Blood collected. Flushed with 10 mL NS. 21:53 Stroke CXR 1 View In Process Unspecified. EDMS 22:37 Arsh Arango MD is Referral Physician. bo1 23:02 Provided Education on: pos er care, need to follow up with pcp. bm8 23:02 IV discontinued, intact, bleeding controlled, No redness/swelling at site. Pressure bm8 dressing applied. Administered Medications: No medications were administered Medication: 21:48 VIS not applicable for this client. bm8 Point of Care Testing: Blood Glucose: 21:19 Blood Glucose: 95 mg/dL; bm8 Ranges: Outcome: 22:38 Discharge ordered by MD. bo1 23:02 Discharged to home ambulatory, with family, bm8 23:02 Condition: stable 23:02 Discharge instructions given to patient, family, Instructed on discharge instructions, follow up and referral plans. no drinking with medication, no driving heavy equipment, medication usage, safety practices, Demonstrated understanding of instructions, follow-up care, medications, Prescriptions given X 2, 23:04 Patient left the ED. bm8 NIH Stroke Scale - NIH Stroke Score Date: 04/25/2024 Time: 21:48 Total Score = 3 10. Dysarthria (speech clarity - read or repeat words) - 0(Normal) 11. Extinction and Inattention (visual/tactile/auditory/spatial/personal) - 0(No abnormality) 1a. Level of Consciousness (LOC) - 0(Alert) 1b. Level of Consciousness (LOC) (Month \T\ Age) - 0(Both) 1c. LOC Commands (Open \T\ Closes Eyes/Meeting Facilitator) - 0(Both) 2. Best Gaze (Lateral Gaze Paresis) - 0(Normal) 3. Visual Field Loss - 0(No visual loss) 4. Facial Palsy - 2(Partial paralysis) 5a. Left Arm: Motor (10-second hold) - 0(No drift) 5b. Right Arm: Motor (10-second hold) - 0(No drift) 6a. Left Leg: Motor (5-second hold - always test supine) - 0(No drift) 6b. Right Leg: Motor (5-second hold - always test supine) - 0(No drift) 7. Limb Ataxia (finger/nose \T\ heel/aldridge - test with eyes open) - 0(Absent) 8. Sensory Loss (pinprick arms/legs/face) - 1(Mild to moderate loss) 9. Best Language: Aphasia (description/naming/reading) - 0(No aphasia) Initials: bm8 NIH Stroke Scale - NIH Stroke Score Date: 04/25/2024 Time: 22:32 Total Score = 2 10. Dysarthria (speech clarity - read or repeat words) - 0(Normal) 11. Extinction and Inattention (visual/tactile/auditory/spatial/personal) - 0(No abnormality) 1a. Level of Consciousness (LOC) - 0(Alert) 1b. Level of Consciousness (LOC) (Month \T\ Age) - 0(Both) 1c. LOC Commands (Open \T\ Closes Eyes/Meeting Facilitator) - 0(Both) 2. Best Gaze (Lateral Gaze Paresis) - 0(Normal) 3. Visual Field Loss - 0(No visual loss) 4. Facial Palsy - 2(Partial paralysis) 5a. Left Arm: Motor (10-second hold) - 0(No drift) 5b. Right Arm: Motor (10-second hold) - 0(No drift) 6a. Left Leg: Motor (5-second hold - always test supine) - 0(No drift) 6b. Right Leg: Motor (5-second hold - always test supine) - 0(No drift) 7. Limb Ataxia (finger/nose \T\ heel/aldridge - test with eyes open) - 0(Absent) 8. Sensory Loss (pinprick arms/legs/face) - 0(Normal) 9. Best Language: Aphasia (description/naming/reading) - 0(No aphasia) Initials: bo1 Signatures: Dispatcher [employer] EDAundrea Cortez [email or web address] Marcos Adkins MD MD bo1 Pramod Benito RN RN 8 Corrections: (The following items were deleted from the chart) 23:04 21:30 Discharged to [place] [id number]
[2024-04-25 23:21] VITALS: TEMP 97.9
[2024-04-25 23:28] VITALS: BP 125/83; O2SAT 100
--- NOTE | 2024-04-27 13:48 | EKG ---
Test Date: 2024-04-25 Test Time: 22:03:21 Food Service Agent: CAROL MEASUREMENT RESULTS: Intervals: Rate: 64 RI: 150 QRSD: 78 QT: 416 QTc: 429 [place]: P: 67 RI: 150 QRS: 61 T: 64 INTERPRETIVE STATEMENTS: Normal sinus rhythm Normal ECG Compared to ECG 03/27/2023 14:03:49 No significant changes Electronically Signed On 04-27-24 13:45:07 CDT by Tomas Castro
== END 2024-04-25 23:04 | disposition home or self-care (01) ==
LOC: ER 21:18
DX: G51.0 Bell's palsy (principal)
CPT/HCPCS: 36415; 70450; 71045; 80048; 82947; 84484; 85025; 85610; 85730; 93005; 99285